=== PATIENT | female | born 1960 | race Caucasian/White ===

== ENCOUNTER 2017-06-21 16:06 | Observation (INO) | payer OTHER ==
[~2017-06-21] VITALS: Ht 157.5 cm; Wt 81.1 kg
--- NOTE | ~2017-06-21 | HEMODYNAMI ---
PATIENT:SHOLA VALENTINE MEDICAL RECORD: [id number] : 64 LOCATION:[address] ADMISSION DATE: 06/21/17 Generatedon:06/22/201712:28 Patient name: SHOLA VALENTINE Patient #: [id number] SSN: : 1960 Date of study: 06/22/2017 Page: Of Hemodynamic Procedure Report Patient Data Patient Demographics Procedure consent was obtained First Name: SHOLA Gender: Female Last Name: SERGE : 1960 Patient #: [id number] Age: 56 year(s) Race: Unknown Additional ID: [id number] Contact details Address: [address] [place] [address] State: [place] City: [place] Zip code: [address] Past Medical History Allergies Allergen Reaction Date Comments Reported Adhesive tape 06/22/2017 Other allergy 06/22/2017 theophyline Admission Admission Data Admission Date: 06/21/2017 Admission Time: 16:06 Room #: 2121 Procedure Procedure Types Cath Procedure Diagnostic Procedure [facility] w/Coronaries Miscellaneous Procedures Moderate Sedation up to 15 minutes Peripheral Cath Diagnostic Procedure Cath Peripheral Four Vessel Arteriogram Procedure Description Procedure Date Procedure Date: 06/22/2017 Procedure Start Time: 12:15 Procedure End Time: 12:28 Procedure Staff Name Function eJtt Ortiz MD Performing Physician Cherie Mera RT Monitor Shirley Reyes RT Scrub Dedra Chinchilla RN Nurse Gary Amador RT Blocker And Sewer Procedure Data Cath Procedure Fluoroscopy Diagnostic fluoroscopy Total fluoroscopy Time: 1.6 time: 1.6 min min Diagnostic fluoroscopy Total fluoroscopy dose: 158 dose: 158 mGy mGy Contrast Material Contrast Material Type Amount (ml) Isovue 300 72 Entry Location Entry Primary Successful Side Size Upsize Upsize Entry Closure Succes sful Closure Location (Fr) 1 (Fr) 2 (Fr) Remarks Device Remarks Femoral Right 5 Fr Exoseal artery Estimated blood loss: 5 ml Diagnostic catheters Device Type Used For End Catheter Placement MULTIPACK JL 4.0 5Fr catheter MULTIPACK 3DRC 5Fr Right Coronary catheter Angiography MULTIPACK 3DRC 5Fr Cervical carotid catheter (common) arteriography MULTIPACK 3DRC 5Fr Cervical carotid catheter (common) arteriography MULTIPACK Pigtail 5 Fr LV Angiography catheter Procedure Complications No complications Procedure Medications Medication Administration Route Dosage Oxygen NC 2 l/min Lidocaine 2% added to field 20 Heparin Flush Bag added to field 2 bags (1000units/500ml NS) 0.9% NaCl I.V. 100 ml/hr Versed I.V. 2 mg Fentanyl I.V. 100 mcg Versed I.V. 2 mg Fentanyl I.V. 100 mcg Hemodynamics Rest Heart Rate: 49 (bpm) Pressure Samples Time Site Value (mmHg) Purpose Heart Use Rate(bpm) 12:22 LV 94/13,16 EDP 55 12:22 AO 111/63(78) Pullback 59 12:22 LV 103/15,16 Pullback 59 Gradients Valve Time Site 1 Site 2 Mean SEP/DFP Peak To Heart Use (mmHg) (sec/min) Peak Rate (mmHg) (bpm) Aortic 12:22 LV AO 0 14 0 59 103/15,16 111/63(78) Calculations Valve P-P Mean Valve Index Valve Source Name Gradient Area Flow (cm2) Aortic 0 0 0 0 Snapshots Pre Cath Intra NCS Post Cath Vital Signs Time Heart Resp SPO2 etCO2 NIBP Rhythm Pain Sedation Rate (ipm) (%) (mmHg) (mmHg) Status Level (bpm) 12:08:16 45 17 100 32.4 99/58(78) NSR 0 (11) 10(A) , No pain 12:12:30 47 16 99 36.2 94/52(73) NSR 0 (11) 10(A) , No pain 12:16:40 50 15 98 35.4 94/59(76) NSR 0 (11) 10(A) , No pain 12:20:50 62 15 98 37.7 105/58(85) NSR 0 (11) 10(A) , No pain 12:25:04 57 16 98 48.2 97/44(66) NSR 0 (11) 10(A) , No pain Medications Time Medication Route Dose Verified Delivered Reason Notes Effe ctiveness by by 12:14:17 Oxygen NC 2 Jett Colmenares used for l/min St. Lavelle Chinchilla RN procedure 12:14:25 Lidocaine 2% added 20ml Jett Frausto for local to vial [facility] anesthetic field MD JACOME 12:14:31 Heparin Flush added 2 Jett Jett used for Bag to bags [facility] procedure (1000units/500ml field MD JACOME NS) 12:14:41 0.9% NaCl I.V. 100 Jett Colmenares Per ml/hr Chisholm Renée RN physician 12:15:49 Versed I.V. 2 mg Jett Samanthaie for ChisholmLaura Chinchilla RN sedation 12:15:55 Fentanyl I.V. 100 Jett Buffie for [facility] [place] Diana Renée RN sedation 12:21:54 Versed I.V. 2 mg Jett Samanthaie for Chisholm Renée MATUTE sedation 12:21:58 Fentanyl I.V. 100 Jett Samanthaie for [facility] Renée RN sedation Procedure Log Time Note 11:33:16 Gary Amador RT(R) (CV) sent for patient. Start room use. 11:33:17 Time tracking: Regular hours 11:33:21 Plan of Care:Hemodynamics will remain stable., Cardiac rhythm will remain stable., Comfort level will be maintained., Respiratory function will remain adequate., Patient/ family verbilizes understanding of procedure., Procedure tolerated without complication., Recovers from procedure without complications.. 11:38:28 Use device set Femoral Dx 11:38:30 ACIST Syringe (88956) opened to sterile field. 11:38:31 Bag Decanter (2001S) opened to sterile field. 11:38:32 Medline Cath Pack ([id number]) opened to sterile field. 11:38:33 Terumo 5Fr [place] Sheath opened to sterile field. 11:38:35 St Duke 260cm J .035 wire opened to sterile field. 11:38:39 ACIST Hand Control (50617) opened to sterile field. 11:38:41 ACIST Manifold (97570) opened to sterile field. 11:38:43 DIAGNOSTIC Multipack 5Fr catheter set ([id number]) opened to sterile field. 11:38:44 Tegaderm 4 x 4 (1626W) opened to sterile field. 11:38:47 PERCUTANEOUS ENTRY 19GA needle opened to sterile field. 11:52:50 Patient received from PCU to CCL 3 Alert and oriented. Tansferred to table in Supine position. 11:52:51 Warm blankets applied, and lizzy hugger turned on for patient comfort. 11:52:52 Correct patient and procedure confirmed by team. 11:56:30 Signed procedure consent form obtained from patient. 11:56:30 ECG and BP/O2 sat monitors applied to patient. 11:56:31 Full Disclosure recording started 12:07:02 Baseline sample Acquired. 12:07:04 Vital chart was started 12:07:06 Baseline sample Acquired. 12:07:12 Rhythm: sinus bradycardia 12:07:57 H&P Date Dictated: 06/21/2017 Within 30 days and on chart.. 12:07:59 Pre-procedure instructions explained to patient. 12:07:59 Pre-op teaching completed and patient verbalized understanding. 12:08:02 Family in patients room. 12:08:03 Patient NPO since Midnight. 12:08:09 Patient allergic to Adhesive tape 12:08:26 Patient allergic to Other allergytheophyline 12:08:28 Is the patient allergic to Iodine/contrast media? No. 12:08:30 Is patient on blood thinner?No 12:08:33 Patient diabetic? No. 12:08:36 Previous problem with sedation/anesthesia? No ? 12:08:37 Snore? No 12:08:38 Sleep apnea? No 12:08:38 Deviated septum? No 12:08:39 Opens mouth fully? Yes 12:08:40 Sticks out tongue? Yes 12:08:41 Airway obstruction? No ? 12:08:42 Dentures? No ? 12:08:44 Pre procedure: right dorsailis pedis pulse 2+ Normal; easily identifiable; not easily obliterated 12:08:46 Patient pain scale 0/10 ?. 12:08:50 IV patent on arrival in left hand with 0.9% NaCl at KVO. 12:08:53 Lab results completed and on chart. 12:08:55 Right groin area was prepped with chlora-prep and draped in sterile fashion 12:08:56 Alarms reviewed by R. N. 12:08:56 Sharps counted by scrub and verified by R.N. 12:09:04 Final Timeout: patient, procedure, and site verified with staff and physician. All members of the team are in agreement. 12:09:06 Right groin site verified by team. 12:: Physical assessment completed. ASA score P 2 - A patient with mild systemic disease as per Jett Ortiz MD. 12::11 Sedation plan: IV Moderate Sedation Medication:Versed, Fentanyl 12:12:50 Zero performed for pressure channel P1 12:14:17 Oxygen 2 l/min NC was administered by Dedra Chinchilla RN; used for procedure; 12:14:25 Lidocaine 2% 20ml vial added to field was administered by Jett Ortiz MD; for local anesthetic; 12:14:31 Heparin Flush Bag (1000units/500ml NS) 2 bags added to field was administered by Jett Ortiz MD; used for procedure; 12:14:41 0.9% NaCl 100 ml/hr I.V. was administered by Dedra Chinchilla RN; Per physician; 12:15:36 Procedure started. 12:15:48 Local anesthetic to right femoral artery with Lidocaine 2% by Jett Ortiz MD.INITIAL ACCESS ONLY 12:15:49 Versed 2 mg I.V. was administered by Dedra Chinchilla RN; for sedation; 12:15:55 Fentanyl 100 mcg I.V. was administered by Dedra Chinchilla RN; for sedation; 12:17:47 A 5 Fr sheath was inserted into the Right Femoral artery 12:17:54 A MULTIPACK JL 4.0 5Fr catheter was advanced over the wire and used for . 12:19:12 Catheter removed. 12:19:25 A MULTIPACK 3DRC 5Fr catheter was advanced over the wire and used for Right Coronary Angiography. 12:20:25 A MULTIPACK 3DRC 5Fr catheter was advanced over the wire and used for Cervical carotid (common) arteriography.Right 12:21:06 A MULTIPACK 3DRC 5Fr catheter was advanced over the wire and used for Cervical carotid (common) arteriography.Left 12:21:07 Catheter removed. 12:21:20 A MULTIPACK Pigtail 5 Fr catheter was advanced over the wire and used for LV Angiography. 12:21:54 Versed 2 mg I.V. was administered by Dedra Chinchilla RN; for sedation; 12:21:58 Fentanyl 100 mcg I.V. was administered by Dedra Chinchilla RN; for sedation; 12:22:29 LV gram done using GAMING 12:22:30 LV hemodynamics recorded. 12:22:33 Injector settings: Ml/sec: 10, Volume: 20, 12::41 EF : 50 % 12::54 Catheter removed. 12::57 EXOSEAL 5Fr (EX500) opened to sterile field. 12:23:27 Sheath removed intact; hemostasis achieved with Exoseal to the Right Femoral artery. 12:23:30 Procedure ended.(Physican Out) 12:23:34 Fluoroscopy time 01.60 minutes. 12::39 Fluoroscopy dose: 158 mGy 12::39 Flurop Dose total: 158 12:24:28 Contrast amount:Isovue 300 72ml. 12:24:29 Sharps counted by scrub and verified by R.N. 12:24:32 Insertion/operative site no bleeding no hematoma. 12:24:35 Post-op/insertion site Right Femoral artery dressed using a 4 x 4 and Tegaderm. 12:24:37 Post right femoral artery:stable, clean and dry 12::39 Post Procedure Pulses reassessed and unchanged 12:24:42 Post-procedure physical assessment completed. ASA score P 2 - A patient with mild systemic disease as per Jett Ortiz MD. 12:24:44 Post procedure rhythm: unchanged. 12:24:47 Estimated blood loss: 5 ml 12:24:48 Post procedure instruction explained to patient.Patient verbalizes understanding. 12:24:50 Patient needs reinforcement of post procedure teaching. 12:25:41 Procedure type changed to Cath procedure, Diagnostic procedure, LHC, LHC w/Coronaries, Miscellaneous Procedures, Moderate Sedation up to 15 minutes, Peripheral Cath Diagnostic Procedure, Cath Peripheral, Four Vessel Arteriogram 12:25:47 Procedure Complication : No complications 12:25:49 See physician's report for complete and final results. 12::57 Procedure and supply charges have been captured, reviewed, submitted and are correct. 12:27:58 Vital chart was stopped 12:28:01 Report given to PCU. 12:28:04 Patient transfered to PCU with Stretcher. 12:28:36 Procedure ended. 12:28:36 Full Disclosure recording stopped 12:28:41 End room use (Document Last) Device Usage Item Name Manufacture Quantity Catalog Hospital Part Current Minimal Lot# / Number Charge Number Stock Stock Serial# Code [place] [address]690 04542 013661 385234 825207 20 Syringe Medical (55629) Systems Inc Bag Decanter Microtek 1 2001S 107435 72032 420114 5 (2001S) Medical Inc. Medline Cath Cardinal 1 [id number] 842957 44552 368209 5 Pack Health ([id number]) Terumo 5Fr Terumo 1 EQA386 913639 293559 864547 [address] [place] [facility] 1 450237 666966 383512 092176 30 260cm J .035 wire ACIST Hand Acist 1 30344 212509 953116 389643 5 Control Medical (92284) Systems Inc ACIST Acist 1 18571 415659 780424 513514 5 Manifold Medical (97705) Systems Inc DIAGNOSTIC Cardinal 1 MZ7553 937852 55908 590645 30 Multipack Health 5Fr catheter set ([id number]) Tegaderm 4 x 3M 1 1626W 538887 832306 657356 5 4 (1626W) PERCUTANEOUS Cook Medical 1 J06053 990087 401498 5 ENTRY 19GA needle MULTIPACK JL Cardinal 1 669049 5 4.0 5Fr Health catheter MULTIPACK Cardinal 1 455989 5 3DRC 5Fr Health catheter MULTIPACK Cardinal 1 530482 5 Pigtail 5 Fr Health catheter EXOSEAL 5Fr Cardinal 1 EX500 519955 772961 148107 10 (EX500) Health Signature Audit [place] Stage Time Signature Unsigned Intra-Procedure 06/22/2017 Cherie 12:28:52 PM Counts RT(R) Signatures Monitor : Cherie Signature : Counts RT Date : Time : [facility] [address] [place] [address]
--- NOTE | 2017-06-21 07:08 | NUR ---
PT'S SON CAME OUT TO NURSE STATION, STATING THAT PT IS HAVING SEVERE CHEST PAIN THAT IS NOT GOING AWAY. TELEMETRY SHOWING SR 71, VITAL SIGNS STABLE. BP 102/63, RESP 20, HR 67, O2 96%. PT STATES THAT SHE JUST GOT OFF THE PHONE WITH FAMILY, AND MADE HER VERY UPSET. PT STATED, I THINK ITS JUST ANXIETY BUT DR. VAUGHN MADE HER COME TO THE HOSPITAL. PT DENIES ANY OTHER NEEDS AT THIS TIME. CALL LIGHT IN REACH, SON AT BEDSIDE, NAD NOTED.
--- NOTE | 2017-06-21 16:40 | NUR ---
RECEIVED PT TO ROOM 2120 VIA WHEELCHAIR, PT VERY EMOTIONAL STATES THAT HER FATHER WAS IN THE HOSPITAL AND WAS GOING HOME ON HOSPICE TODAY. FEELS REALLY BAD BECAUSE SHE CANNOT BE THERE. TRIED TO CALM PT DOWN, INFORMED HER THAT I WOULD SEE IF WE COULD GET HER SOMETHING FOR ANXIETY. PT STATED " DR. VAUGHN ALREADY GAVE ME SOMETHING IN HIS OFFICE." 22G IV STARTED TO LT FA BY NIMISHA MATUTE. EKG DONE SHOWING SB 57. ORIENTED PT TO ROOM AND CALL LIGHT, SON WILL BE STAYING THE NIGHT SO PROVIDED HIM WITH A RECLINER CHAIR. PT DNIES ANY NEEDS AT THIS TIME. CALL LIGHT IN REACH, NAD NOTED, WILL START PLAN OF CARE.
[2017-06-21 17:25] VITALS: BP 103/68; Ht 157.5 cm; Wt 81.1 kg
[2017-06-21 17:54] LABS: CREATINE KINASE 83 UL (21-215); TROPONIN-I < 0.017 ng/mL (0.000-0.060)
--- NOTE | 2017-06-21 20:44 | NUR ---
PT LYING IN BED, AWAKE, ALERT, ORIENTED, TEARFUL, BUT STABLE. NO NEEDS AT THIS TIME. 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 TODAY HER FATHER WAS TRANSFERRED HOME ON HOSPICE, AND PT STATES SHE IS FEELING GUILTY THAT SHE IS NOT THERE TO BE WITH HIM TONIGHT. PTS SON IS AT BEDSIDE. CONTINUE TO MONITOR CLOSELY.
[2017-06-21 21:12] VITALS: BP 108/57
[2017-06-21 22:54] LABS: CKMB 0.8 U/L (0.0-3.6); CREATINE KINASE 81 UL (21-215); TROPONIN-I < 0.017 ng/mL (0.000-0.060)
[2017-06-22 01:05] VITALS: BP 79/35
--- NOTE | 2017-06-22 01:33 | NUR ---
PT RESTING COMFORTABLY, EASILY ROUSABLE TO VERBAL STIMULI. SON AT BEDSIDE. CONTINUE TO MONITOR CLOSELY.
[2017-06-22] MEDS ORDERED: XANAX1 MG PO (03:55)
[2017-06-22] MEDS ORDERED: PROZAC10 MG PO (03:56)
[2017-06-22] MEDS ORDERED: BACLOFEN10 MG PO (03:56)
[2017-06-22] MEDS ORDERED: KLONOPIN1 MG PO (03:57)
[2017-06-22] MEDS ORDERED: LIPITOR20 MG PO (03:58)
[2017-06-22] MEDS ORDERED: HYDROCODON-ACE1 EAC7 PO (03:58)
--- NOTE | 2017-06-22 04:55 | NUR ---
PT'S B/P HAS BEEN LOW, LAST READING @ 04:30 THIS AM IS 76/37 PER OUTREACH AND EDUCATION SOCIAL WORKER. I RECHECKED PTS B/P WITH THE WALL UNIT IN PTS ROOM WITH A READING OF 100/59. PT REMAINS STABLE, STILL HAS TWINGES OF CHEST PAIN, HOWEVER, I CANNOT GIVE HER ANYTHING SEDATING WITH HER PRESSURE BEING LOW. PT STATES SHE DOES GET DIZZY WHEN AMBULATING TO THE BATHROOM. WE DISCUSSED THE NEED TO DANGLE ON THE BEDSIDE BEFORE AMBULATING, IN WHICH PT STATES SHE HAS BEEN DOING THAT. PT IS TO CALL WITH ANY NEEDS OR CHANGES IN S/S. WILL CONTINUE TO MONITOR CLOSELY.
[2017-06-22 05:22] VITALS: BP 76/37
[2017-06-22 05:33] LABS: BASOPHILS 0.3 % (0-2); EOSINOPHILS 4.3 % (0-7); HEMATOCRIT 36.8 % (36.0-48.0); HEMOGLOBIN 12.4 g/dL (12-16); IMMATURE GRANULOCYTES 0.2 % (0-5); MCH 31.1 pg (26.0-34.0); MCHC 33.7 g/dL (31.0-37.0); MCV 92.2 fL (80.0-100.0); MEAN PLATELET VOLUME 11.3 fL (7.4-10.4); MONOCYTES 8.6 % (2-11); NEUTROPHILS 38.6 % (40-80); PLATELET COUNT 131 10x3/uL (130-400); RBC 3.99 10x6/uL (4.00-5.40); RDW 11.9 % (11.5-14.5); WBC 6.3 10x3/uL (4.8-10.8)
[2017-06-22 05:35] LABS: ALBUMIN 3.1 g/dL (3.4-5.0); ALKALINE PHOSPHATASE 39 U/L (46-116); ALT (SGPT) 18 U/L (10-68); CALC OSMOLALITY 284 mosm/kg (275-300); CARBON DIOXIDE 28.5 mmol/L (21.0-32.0); CHLORIDE - SERUM 107 mmol/L (98-107); CREATINE KINASE 70 UL (21-215); CREATININE - SERUM 0.9 mg/dL (0.6-1.3); GLUCOSE 107 mg/dL (74-106); POTASSIUM - SERUM 3.8 mmol/L (3.5-5.1); PRO BNP 103 pg/mL (0-125); PROTEIN - SERUM 5.4 g/dL (6.4-8.2); SODIUM 143 mmol/L (136-145); TROPONIN-I < 0.017 ng/mL (0.000-0.060); UREA NITROGEN 12 mg/dL (7-18); eGFR NON AFRICAN AMERICAN 69 mL/min (90-120)
[2017-06-22 05:41] VITALS: BP 100/59
[2017-06-22 08:33] VITALS: BP 107/53
--- NOTE | 2017-06-22 09:26 | NUR ---
TELEMETRY SR. CONSENTS SIGNED FOR [facility]. WILL CONT. PLAN OF CARE.
--- NOTE | 2017-06-22 12:02 | NUR ---
PRE-OPS GIVEN. TO LAB SPECIALIST BY BED.
--- NOTE | 2017-06-22 12:03 | NUR ---
PRE-OPS GIVEN. TO ENVIRONMENTAL AIDE BY BED.
--- NOTE | 2017-06-22 12:48 | NUR ---
BACK FROM GOAL UMPIRE. VS WNL. RIGHT GROIN STABLE WITHOUT BLEEDING OR HEMATOMA NOTED. WILL MONITOR.
--- NOTE | 2017-06-22 13:52 | NUR ---
PTS BP TRENDING LOW SO I WENT TO DO A MANUAL AND PT YELLED AT ME TO LEAVE HER ROOM AND SAID "GET OUT IM LEAVING I DONT WANT SHIT FROM YOU" PT IS STILL SUPPOSE TO BE ON BEDREST AND IS IN A VERY BAD MOOD AND REFUSING TO LISTEN. PT IS COLLECTING HER BELONGINGS, NOTIFIED PRIMARY RN FOR THIS PT.
--- NOTE | 2017-06-22 14:03 | NUR ---
ENTERED ROOM TO ASK IF SHE WOULD LIKE A FLU OR PNEUMONIA VACCINE. PATIENT STATED SHE WAS BUSY TAKING CARE OF BUSINESS AND THAT I COULD COME BACK IN 5 MINUTES. I EXPLAINED I MIGHT NOT BE ABLE TO COME BACK IN 5 MINUTES AND SHE STATES " WELL THAT'S YOUR PROBLEM ISN'T IT". I EXITED THE ROOM.
--- NOTE | 2017-06-22 14:04 | NUR ---
[facility] NOTIFED OF PATIENT WANTING TO STAY OVERNIGHT. PT STATES THAT BOTH DOCTORS TOLD HER SHE COULD STAY. REFUSED MANUAL B/P. PULLS OUT IV AND TELEMETRY. WHEN TOLD SHE WOULD HAVE TO SIGN OUT AMA IF SHE LEFT BEFORE HER BR IS UP. SHE DECIDED TO LAY BACK DOWN UNTILL THEN. WILL CONT. TO MONITOR.
--- NOTE | 2017-06-22 14:13 | NUR ---
RETURNED TO PATIENTS ROOM TO ASK IF SHE WOULD LIKE A FLU OR PNEUMONIA VACCINE. STATED "NO, THEY DON'T WORK ANYWAY".
--- NOTE | 2017-06-22 14:16 | NUR ---
REFUSES TO LET ME MONITOR GROIN.
--- NOTE | 2017-06-22 14:43 | NUR ---
BEDREST UP. GROIN STABLE. 1400 B/P /56. DC PLANS GIVEN. UNDERSTANDING VOICED. ESCORTED TO CAR BY W/C.
--- NOTE | 2017-06-25 13:58 | OP ---
PATIENT NAME: SHOLA VALENTINE MEDICAL RECORD: [id number] :64 LOCATION:D.M2 D.2121 ADMISSION DATE:06/21/17 SURGEON: NELL ZAMORA MD DATE OF OPERATION: 06/22/2017 PROCEDURE: Left heart catheterization, selective coronary angiography, right femoral artery approach. CATHETERS USED: 5-Palestinian sheath, 5/4 right and left Bebeto, 5/4 pig. The procedure was well tolerated. The patient was returned to the iqbal, sheath removed and ExoSeal device placed. FINDINGS: Left ventriculography in 30-degree GAMING view: Normal wall motion, normal systolic function, no more than 1+ mitral regurgitation. Do not appreciate any prolapse of the mitral valve itself. CORONARY ANATOMY LEFT MAIN: Left main is free of disease. LAD: Free of disease in the diagonal system. CIRCUMFLEX: Free of disease in the marginal system. RIGHT CORONARY ARTERY: Dominant artery, gives rise to PDA, free of disease. FOUR-VESSEL ARTERIOGRAPHY: LEFT SYSTEM: Left common carotid: Smooth-walled vessel, free of disease. Left internal carotid: Smooth-walled vessel, free of disease. Left external carotid: Smooth-walled vessel, free of disease. RIGHT SYSTEM: Right common carotid: Smooth-walled vessel, free of disease. Right external carotid: Smooth-walled vessel, free of disease. Right internal carotid: Smooth-walled vessel, free of disease. IMPRESSION: Normal 4-vessel arteriography. I really do not appreciate plaquing reported by carotid Doppler previously. TRANSINT:[id number] Voice Confirmation ID: [id number] DOCUMENT ID: [id number] NELL ZAMORA MD at 1358 CC: [id number] DICTATION DATE: 06/22/17 1229 MILL FEEDER: 06/22/17 1245 DIS IN 06/22/17 [place] [id number] [place] [id number]
--- NOTE | 2017-06-25 13:58 | CN ---
PATIENT NAME:SHOLA VALENTINE MEDICAL RECORD: [id number] : 64 LOCATION:. D.2121 ADMIT DATE: 06/21/17 ACCOUNT: [id number] CONSULTING PHYSICIAN: NELL ZAMORA MD REFERRING PHYSICIAN: LAKEISHA VAUGHN MD DATE OF CONSULTATION: 06/22/2017 HISTORY OF PRESENT ILLNESS: A 56-year-old female with a history of mitral valve prolapse, admitted with chest pain, increasing palpitations, dizziness, visual changes, near syncope. This has been going on for the past few weeks, has been under quite a bit of stress with her father being placed on hospice. She has had arrhythmias in the past. It was told she had early atherosclerotic disease via Doppler in the past. She does have a history of dyslipidemia as well. We are asked to see her concerning her cardiovascular status. PAST MEDICAL HISTORY: Otherwise includes: 1. History of dyslipidemia. 2. Anxiety with panic attacks. MEDICATIONS: Include clonazepam 1 mg p.o. t.i.d., Prozac 10 mg p.o. daily, Xanax 1 mg p.o. q.6 hours p.r.n., atorvastatin 20 daily, Baclofen 10 t.i.d. SOCIAL HISTORY: She lives in [place]. She is a nonsmoker. Previously worked at the [employer]. She has been under more stress as described above. Usually takes care of her ADLs. REVIEW OF SYSTEMS: The patient reports easy bruising but reports no swollen glands. The patient reports no fever, no night sweats, no significant weight gain, no significant weight loss. No significant exercise tolerance. The patient reports no dry eyes, no irritation, no vision change. Patient reports no difficulty hearing and no ear pain. Patient reports no frequent nose bleeds or nose and sinus problems. Patient reports on arm pain on exertion. No shortness of breath while lying down. No history of heart murmur. Patient reports no cough, no wheezing or coughing up blood. Patient reports no abdominal pain, no vomiting. Normal appetite. No diarrhea and not vomiting blood. No nausea and no constipation. Patient reports no incontinence. No difficulty urinating. No hematuria. No increased frequency. Patient reports no muscle aches. No weakness, no arthralgias, no back pain. No swelling of the extremities. Patient reports no abnormal mole, no jaundice, no rashes. Reports no loss of consciousness. No weakness and no numbness. No seizures, dizziness, or headaches. The patient reports no depression, no sleep disturbance, feeling safe in a relationship and no alcohol abuse. Patient reports on fatigue. Reports no runny nose or sinus pressure. No itching, no hives, and no frequent sneezing. ALLERGIES: THEOPHYLLINE. PHYSICAL EXAMINATION: GENERAL: Pleasant female in no acute distress. HEENT: Normocephalic, atraumatic. NECK: No JVD or bruit. HEART: Regular. LUNGS: Reyes clear. ABDOMEN: Soft, nontender. EXTREMITIES: Pulses 2+ with no edema. CONSULT REPORT [id number] SHOLA VALENTINE DIAGNOSTIC DATA: ECG without acute change. IMPRESSION: Acute coronary syndrome. I will plan for diagnostic angiography. Given her neurologic symptomatology and history of early atherosclerotic disease via carotid Doppler we will plan for 4-vessel in the same setting. TRANSINT:[id number] Voice Confirmation ID: [id number] DOCUMENT ID: [id number] NELL ZAMORA MD at 1358 CC: [id number] DICTATION DATE: 06/22/17 0850 MARKETING DEVELOPMENT REPRESENTATIVE: 06/22/17 1148 DIS IN 06/22/17 [place] [id number] [place] [address]
== END 2017-06-22 14:45 | disposition home or self-care (01) ==
LOC: D.M2 16:06 → OBSVTIME 16:38 → D.M2 06-22 14:45
PROVIDERS: Family Medicine; ADMIT Family Medicine
DX: R07.9 Chest pain, unspecified (principal); R42 Dizziness and giddiness; H53.9 Unspecified visual disturbance; F41.0 Panic disorder [episodic paroxysmal anxiety]; E78.5 Hyperlipidemia, unspecified

== ENCOUNTER 2017-10-08 12:48 | Inpatient (IN) | payer OTHER ==
[~2017-10-08] VITALS: Ht 157.5 cm; Wt 83.0 kg
--- NOTE | ~2017-10-08 | OP ---
PATIENT NAME: SHOLA VALENTINE MEDICAL RECORD: [id number] :64 LOCATION:D.MS [id number] ADMISSION DATE:10/08/17 SURGEON: OTTO LORD MD DATE OF OPERATION: 10/10/2017 SURGEON: Otto Lord MD ANESTHESIA: MAC by Carlos Mcgraw CRNA PREOPERATIVE DIAGNOSIS: Left pyelonephritis with left hydronephrosis. PROCEDURES: Cystoscopy, left retrograde pyelogram, left ureteral stent insertion 6-Wolof x 22 cm with string attached. FINDINGS: Inflamed bladder. Single ureteral orifices bilaterally. On retrograde pyelogram, there is hydronephrosis to the proximal ureter. No obvious filling defect. No hydroureter. No stone seen. CLINICAL HISTORY: This is a 56-year-old female, who has a 5 day history of left flank pain, fevers, chills, rigors, and dysuria with cloudy urine. Her urine is growing Proteus mirabilis, which is sensitive to all antibiotics except for nitrofurantoin to which she is resistant. She was started empirically on IV Levaquin. She does have a history of kidney stones. A CT scan of the abdomen and pelvis showed no kidney stones. However, there was left hydronephrosis to the UP junction level. It was uncertain whether this was due to tissue edema or some other cause. At any rate, she continues to have high spiking fevers to 102 Fahrenheit. We are going to perform a left retrograde pyelogram and left ureteral stent insertion. SHE IS ALLERGIC TO TAPE, THEOPHYLLINE, AND KEFLEX. She is already on IV Levaquin and we gave her the next dose of Levaquin prior to her coming here to the OR. DESCRIPTION OF PROCEDURE: The patient was given IV sedation. She was then placed in the dorsal lithotomy position. Cystoscopy was performed using a 21-Wolof cystoscope with 30-degree lens. Into the left ureteral orifice, we inserted the left open-ended ureteral catheter. Diluted contrast was injected. There is no hydroureter. However, there is some area of possible obstruction in the proximal ureter. No obvious filling defect was seen there. Finally, there was hydronephrosis of the renal pelvis in the UP junction area. The appearance is not consistent with a UPJ obstruction. Through the lumen of the ureteral catheter, we inserted a sensor wire up to his renal pelvis. The ureteral catheter was then removed entirely. The 6-Wolof x 22 cm ureteral stent was inserted. Once the stent was in correct position, the wire was entirely withdrawn. The distal end of the stent was pushed into the bladder using the pusher. The bladder was then emptied through the scope and then the scope was removed entirely. The string on the distal end of the stent is maintained. It was taped to the suprapubic area using a piece of Tegaderm. The patient was then awakened and brought to the recovery room. TRANSINT:[id number] Voice Confirmation ID: [id number] DOCUMENT ID: [id number] OPERATIVE REPORT [id number] SHOLA VALENTINE, OTTO Sow MD at 1226 CC: [id number] DICTATION DATE: 10/10/17 1058 SPLITTING MACHINE TENDER: 10/10/17 1118 ADM IN [facility] [address] [place] [address]
[~2017-10-08 12:48] MED LIST: BACLOFEN10 MG PO; HYDROCODON-ACE1 EAC7 PO; KLONOPIN1 MG PO; LIPITOR20 MG PO; PROZAC10 MG PO; XANAX1 MG PO
[2017-10-08 13:34] VITALS: BP 119/72; BMI 33.5
[2017-10-08] MEDS ORDERED: CYCLOBENZAPRINE10 MG PO (13:34)
[2017-10-08 14:24] LABS: BASOPHILS 0.1 % (0-2); EOSINOPHILS 0.4 % (0-7); HEMATOCRIT 41.3 % (36.0-48.0); HEMOGLOBIN 14.5 g/dL (12-16); IMMATURE GRANULOCYTES 0.2 % (0-5); LYMPHOCYTES 12.9 % (15-50); MCH 31.4 pg (26.0-34.0); MCHC 35.1 g/dL (31.0-37.0); MCV 89.4 fL (80.0-100.0); MEAN PLATELET VOLUME 11.2 fL (7.4-10.4); NEUTROPHILS 79.4 % (40-80); PLATELET COUNT 143 10x3/uL (130-400); RBC 4.62 10x6/uL (4.00-5.40); RDW 11.9 % (11.5-14.5); WBC 12.5 10x3/uL (4.8-10.8)
[2017-10-08 14:26] LABS: ALBUMIN 3.6 g/dL (3.4-5.0); ANION GAP 13.8 mmol/L (8-16); BILIRUBIN - TOTAL 0.86 mg/dL (0.2-1.3); CALCIUM 8.7 mg/dL (8.5-10.1); CREATININE - SERUM 0.9 mg/dL (0.6-1.3); POTASSIUM - SERUM 4.8 mmol/L (3.5-5.1); PROTEIN - SERUM 7.1 g/dL (6.4-8.2)
[2017-10-08 15:04] VITALS: BP 119/72
[2017-10-08 18:51] LABS: APPEARANCE HAZY (CLEAR); BILIRUBIN NEGATIVE (NEGATIVE); COLOR AMBER (YELLOW); GLUCOSE NEGATIVE (NEGATIVE); KETONE NEGATIVE (NEGATIVE); NITRITE NEGATIVE (NEGATIVE); PROTEIN 1+ mg/dL (NEGATIVE); UROBILINOGEN NORMAL (NORMAL)
[2017-10-08 18:53] LABS: AMORPHOUS SEDIMENT <1+ /lpf (NONE SEEN); BACTERIA MANY /hpf (NONE SEEN)
[2017-10-08 18:59] VITALS: BP 104/56
[2017-10-08 23:59] VITALS: BP 94/51
[2017-10-09 04:17] VITALS: BP 95/55
[2017-10-09 06:56] LABS: BASOPHILS 0 % (0-2); HEMATOCRIT 35.3 % (36.0-48.0); HEMOGLOBIN 11.9 g/dL (12-16); IMMATURE GRANULOCYTES 0.3 % (0-5); LYMPHOCYTES 26.6 % (15-50); MCH 30.6 pg (26.0-34.0); MCHC 33.7 g/dL (31.0-37.0); MCV 90.7 fL (80.0-100.0); MEAN PLATELET VOLUME 10.5 fL (7.4-10.4); MONOCYTES 8.9 % (2-11); NEUTROPHILS 62.2 % (40-80); RBC 3.89 10x6/uL (4.00-5.40)
[2017-10-09 07:05] LABS: PLATELET COUNT 110 10x3/uL (130-400); WBC 7.7 10x3/uL (4.8-10.8)
[2017-10-09 07:07] LABS: ALBUMIN 2.9 g/dL (3.4-5.0); BILIRUBIN - TOTAL 0.98 mg/dL (0.2-1.3); CALCIUM 8.3 mg/dL (8.5-10.1); CARBON DIOXIDE 28.1 mmol/L (21.0-32.0); CREATININE - SERUM 0.9 mg/dL (0.6-1.3); PROTEIN - SERUM 5.8 g/dL (6.4-8.2)
[2017-10-09 07:08] LABS: ANION GAP 9.9 mmol/L (8-16)
[2017-10-09 08:40] VITALS: BP 95/53
[2017-10-09 13:03] VITALS: BP 99/54
[2017-10-09 15:22] VITALS: BMI 33.5
[2017-10-09 16:59] VITALS: BP 106/57
[2017-10-09 19:26] VITALS: Ht 157.5 cm; Wt 83.0 kg
[2017-10-09 20:22] VITALS: BP 97/59
[2017-10-10] VITALS (10 sets, daily range): BP systolic 88–106; BP diastolic 39–62
[2017-10-10 06:33] LABS: BASOPHILS 0.2 % (0-2); EOSINOPHILS 1.6 % (0-7); HEMATOCRIT 35.8 % (36.0-48.0); HEMOGLOBIN 12.1 g/dL (12-16); IMMATURE GRANULOCYTES 0.2 % (0-5); LYMPHOCYTES 32.5 % (15-50); MCH 30.5 pg (26.0-34.0); MCHC 33.8 g/dL (31.0-37.0); MCV 90.2 fL (80.0-100.0); MEAN PLATELET VOLUME 10.2 fL (7.4-10.4); MONOCYTES 8.6 % (2-11); NEUTROPHILS 56.9 % (40-80); PLATELET COUNT 119 10x3/uL (130-400); RBC 3.97 10x6/uL (4.00-5.40); RDW 11.6 % (11.5-14.5); WBC 6.3 10x3/uL (4.8-10.8)
[2017-10-10 07:27] LABS: ALBUMIN 2.9 g/dL (3.4-5.0); ALKALINE PHOSPHATASE 38 U/L (46-116); ALT (SGPT) 14 U/L (10-68); BILIRUBIN - TOTAL 0.71 mg/dL (0.2-1.3); CALC OSMOLALITY 274 mosm/kg (275-300); CALCIUM 8.6 mg/dL (8.5-10.1); CARBON DIOXIDE 27.5 mmol/L (21.0-32.0); CHLORIDE - SERUM 103 mmol/L (98-107); CREATININE - SERUM 0.8 mg/dL (0.6-1.3); GLUCOSE 99 mg/dL (74-106); SODIUM 138 mmol/L (136-145); eGFR NON AFRICAN AMERICAN 79 mL/min (90-120)
[2017-10-10 07:34] LABS: UREA NITROGEN 9 mg/dL (7-18)
[2017-10-11 04:09] VITALS: BP 81/67
[2017-10-11 06:38] LABS: BASOPHILS 0 % (0-2); EOSINOPHILS 3.6 % (0-7); HEMATOCRIT 33.1 % (36.0-48.0); HEMOGLOBIN 11.1 g/dL (12-16); IMMATURE GRANULOCYTES 0.2 % (0-5); LYMPHOCYTES 42.4 % (15-50); MCH 30.2 pg (26.0-34.0); MCHC 33.5 g/dL (31.0-37.0); MCV 89.9 fL (80.0-100.0); MEAN PLATELET VOLUME 10.6 fL (7.4-10.4); MONOCYTES 9.2 % (2-11); NEUTROPHILS 44.6 % (40-80); PLATELET COUNT 127 10x3/uL (130-400); RBC 3.68 10x6/uL (4.00-5.40); RDW 11.5 % (11.5-14.5); WBC 4.7 10x3/uL (4.8-10.8)
[2017-10-11 07:01] LABS: ALBUMIN 2.6 g/dL (3.4-5.0); ALKALINE PHOSPHATASE 33 U/L (46-116); ALT (SGPT) 16 U/L (10-68); CALC OSMOLALITY 272 mosm/kg (275-300); CALCIUM 8.2 mg/dL (8.5-10.1); CHLORIDE - SERUM 103 mmol/L (98-107); CREATININE - SERUM 0.7 mg/dL (0.6-1.3); GLUCOSE 105 mg/dL (74-106); PROTEIN - SERUM 5.4 g/dL (6.4-8.2); SODIUM 137 mmol/L (136-145); UREA NITROGEN 10 mg/dL (7-18); eGFR NON AFRICAN AMERICAN > 90 mL/min (90-120)
[2017-10-11 08:31] VITALS: BP 92/45
[2017-10-11 13:03] VITALS: BP 127/62
[2017-10-11 16:28] VITALS: BP 86/41
[2017-10-11 20:55] VITALS: BP 101/61
[2017-10-11 23:17] VITALS: BP 108/64
[2017-10-12 04:24] VITALS: BP 110/62
[2017-10-12 06:25] LABS: BASOPHILS 0.2 % (0-2); EOSINOPHILS 6.3 % (0-7); HEMATOCRIT 35.6 % (36.0-48.0); HEMOGLOBIN 12.3 g/dL (12-16); IMMATURE GRANULOCYTES 0.2 % (0-5); LYMPHOCYTES 44.7 % (15-50); MCH 30.8 pg (26.0-34.0); MCHC 34.6 g/dL (31.0-37.0); MONOCYTES 7.6 % (2-11); PLATELET COUNT 137 10x3/uL (130-400); RDW 11.6 % (11.5-14.5); WBC 4.6 10x3/uL (4.8-10.8)
[2017-10-12 06:32] LABS: ALBUMIN 2.9 g/dL (3.4-5.0); ALKALINE PHOSPHATASE 37 U/L (46-116); ALT (SGPT) 14 U/L (10-68); CALC OSMOLALITY 270 mosm/kg (275-300); CALCIUM 8.4 mg/dL (8.5-10.1); CARBON DIOXIDE 26.2 mmol/L (21.0-32.0); CHLORIDE - SERUM 103 mmol/L (98-107); CREATININE - SERUM 0.7 mg/dL (0.6-1.3); GLUCOSE 104 mg/dL (74-106); PROTEIN - SERUM 5.5 g/dL (6.4-8.2); SODIUM 136 mmol/L (136-145); UREA NITROGEN 10 mg/dL (7-18); eGFR NON AFRICAN AMERICAN > 90 mL/min (90-120)
[2017-10-12 08:10] VITALS: BP 113/62
[2017-10-12] MEDS ORDERED: LEVAQUIN750 MG PO (11:10)
[2017-10-12] MEDS ORDERED: PHENERGAN25 M1 PO (11:11)
== END 2017-10-12 15:04 | disposition home or self-care (01) | DRG 690 ==
LOC: D.MS 12:48 → OBSVTIME 12:48 → D.MS 10-10 14:44
PROVIDERS: Family Medicine; Family Medicine Adult Medicine; Urology
PROC: BT1F1ZZ Fluoroscopy of Left Kidney, Ureter and Bladder using Low Osmolar Contrast (ICD-10-PCS; 2017-10-10)
PROC: 0T778DZ Dilation of Left Ureter with Intraluminal Device, Via Natural or Artificial Opening Endoscopic (ICD-10-PCS; principal; 2017-10-10 11:45)
DX: N13.6 Pyonephrosis (principal); B96.4 Proteus (mirabilis) (morganii) as the cause of diseases classified elsewhere; Z87.442 Personal history of urinary calculi; F17.200 Nicotine dependence, unspecified, uncomplicated; F41.9 Anxiety disorder, unspecified; E86.0 Dehydration; I95.9 Hypotension, unspecified; K21.9 Gastro-esophageal reflux disease without esophagitis

== ENCOUNTER 2018-11-25 17:11 | Inpatient (IN) | payer OTHER ==
[~2018-11-25] VITALS: Ht 157.5 cm; Wt 77.3 kg
[~2018-11-25 17:11] MED LIST changes: +CYCLOBENZAPRINE10 MG PO; +LEVAQUIN750 MG PO; +PHENERGAN25 M1 PO
[2018-11-25] MEDS ORDERED: HYDROCODON-ACE1 EA10 PO (17:17)
[2018-11-25] MEDS ORDERED: AMOXICILLIN875 MG PO (17:18)
[2018-11-25] MEDS ORDERED: XANAX2 MG PO (17:18)
--- NOTE | 2018-11-25 19:04 | NUR ---
BEDSIDE REPORT GIVEN TO JUJU LOUIE. CALL LIGHT IN REACH AND NICK NAM.
[2018-11-25 19:47] LABS: BASOPHILS 0.2 % (0-2); EOSINOPHILS 4.2 % (0-7); HEMATOCRIT 33.2 % (36.0-48.0); HEMOGLOBIN 11.3 g/dL (12-16); IMMATURE GRANULOCYTES 0.2 % (0-5); MCH 30.4 pg (26.0-34.0); MCV 89.2 fL (80.0-100.0); MONOCYTES 10.1 % (2-11); NEUTROPHILS 53.3 % (40-80); PLATELET COUNT 138 10x3/uL (130-400); RBC 3.72 10x6/uL (4.00-5.40); RDW 11.8 % (11.5-14.5); WBC 5.5 10x3/uL (4.8-10.8)
[2018-11-25 19:55] LABS: ALBUMIN 3.2 g/dL (3.4-5.0); ALKALINE PHOSPHATASE 39 U/L (46-116); ALT (SGPT) 20 U/L (10-68); BILIRUBIN - TOTAL 0.26 mg/dL (0.2-1.3); CALC OSMOLALITY 275 mosm/kg (275-300); CALCIUM 8.4 mg/dL (8.5-10.1); CARBON DIOXIDE 29.2 mmol/L (21.0-32.0); CHLORIDE - SERUM 101 mmol/L (98-107); CREATININE - SERUM 0.7 mg/dL (0.6-1.3); GLUCOSE 88 mg/dL (74-106); POTASSIUM - SERUM 3.7 mmol/L (3.5-5.1); PROTEIN - SERUM 5.9 g/dL (6.4-8.2); SODIUM 139 mmol/L (136-145); UREA NITROGEN 9 mg/dL (7-18); eGFR NON AFRICAN AMERICAN > 90 mL/min (90-120)
[2018-11-26 00:47] VITALS: BMI 31.1
--- NOTE | 2018-11-26 04:25 | NUR ---
I have reviewed this patient and I concur with the Shift Assessment completed by the Licensed Practical Nurse today this shift.
--- NOTE | 2018-11-26 08:36 | NUR ---
PT ALERT X 4. BREATH SOUNDS CLEAR BILAT. IV TO LEFT HAND, SALINE LOCKED. ABSCESS TO RIGHT SCAPULAR AREA, ALMENDAREZ DRAINAGE, DRESSING CDI. PAIN OF 7/10, MEDICATED PER ORDERS, WILL MONITOR. BED LOW, CALL LIGHT IN REACH. NO OTHER NEEDS AT THIS TIME. PT EMOTIONAL.
[2018-11-26 08:45] LABS: BASOPHILS 0.2 % (0-2); EOSINOPHILS 5.1 % (0-7); HEMATOCRIT 35.9 % (36.0-48.0); HEMOGLOBIN 12.3 g/dL (12-16); IMMATURE GRANULOCYTES 0.2 % (0-5); LYMPHOCYTES 36.5 % (15-50); MCH 30.4 pg (26.0-34.0); MCHC 34.3 g/dL (31.0-37.0); MCV 88.9 fL (80.0-100.0); MEAN PLATELET VOLUME 10.7 fL (7.4-10.4); MONOCYTES 6.7 % (2-11); NEUTROPHILS 51.3 % (40-80); RBC 4.04 10x6/uL (4.00-5.40); RDW 11.9 % (11.5-14.5); WBC 5.1 10x3/uL (4.8-10.8)
[2018-11-26 08:51] LABS: PLATELET COUNT 172 10x3/uL (130-400)
[2018-11-26 09:04] LABS: CALC OSMOLALITY 275 mosm/kg (275-300); CALCIUM 8.6 mg/dL (8.5-10.1); CARBON DIOXIDE 29.6 mmol/L (21.0-32.0); CHLORIDE - SERUM 102 mmol/L (98-107); CREATININE - SERUM 0.8 mg/dL (0.6-1.3); GLUCOSE 103 mg/dL (74-106); POTASSIUM - SERUM 3.9 mmol/L (3.5-5.1); SODIUM 139 mmol/L (136-145); UREA NITROGEN 7 mg/dL (7-18); eGFR NON AFRICAN AMERICAN 78 mL/min (90-120)
[2018-11-26 10:05] VITALS: Ht 157.5 cm; Wt 77.3 kg
[2018-11-26 15:39] VITALS: BP 96/54
[2018-11-26 18:52] VITALS: BP 96/63
[2018-11-26 21:37] VITALS: BP 95/52
[2018-11-27] VITALS (7 sets, daily range): BP systolic 95–110; BP diastolic 52–69
--- NOTE | 2018-11-27 04:34 | NUR ---
I have reviewed this patient and I concur with the Shift Assessment completed by the Licensed Practical Nurse today this shift.
[2018-11-27 06:36] LABS: BASOPHILS 0.2 % (0-2); EOSINOPHILS 5.2 % (0-7); HEMATOCRIT 33.6 % (36.0-48.0); HEMOGLOBIN 11.3 g/dL (12-16); IMMATURE GRANULOCYTES 0.5 % (0-5); LYMPHOCYTES 34.6 % (15-50); MCH 30.4 pg (26.0-34.0); MCHC 33.6 g/dL (31.0-37.0); MCV 90.3 fL (80.0-100.0); MEAN PLATELET VOLUME 10.6 fL (7.4-10.4); MONOCYTES 7.5 % (2-11); PLATELET COUNT 163 10x3/uL (130-400); RBC 3.72 10x6/uL (4.00-5.40); RDW 11.9 % (11.5-14.5)
[2018-11-27 06:47] LABS: CALC OSMOLALITY 279 mosm/kg (275-300); CALCIUM 8.1 mg/dL (8.5-10.1); CARBON DIOXIDE 27.1 mmol/L (21.0-32.0); CHLORIDE - SERUM 105 mmol/L (98-107); CREATININE - SERUM 0.8 mg/dL (0.6-1.3); GLUCOSE 106 mg/dL (74-106); POTASSIUM - SERUM 3.6 mmol/L (3.5-5.1); SODIUM 141 mmol/L (136-145); eGFR NON AFRICAN AMERICAN 78 mL/min (90-120)
[2018-11-27 06:48] LABS: UREA NITROGEN 9 mg/dL (7-18)
--- NOTE | 2018-11-27 10:00 | NUR ---
PT VERY CONCERNED WITH DRESSING BEING SATURATEDF THIS MORNING. ADVISED PT THAT DRESSING IS NOT SOAKED THROUGH AND DRAINING IS EXPECTED, PT REQUESTED THAT DRESSING SITE BE CHANGED, PERFORMED WET TO DRY DRESSING CHANGE PACKING DEBRIDEMENT SITE. ADMINISTERED PRN AND SCHEDULED MEDICATION BEFORE HAND TO ASSIST WITH PAIN. NO OTHER NEEDS VOICED, CONTINUE WITH PLAN OF CARE
--- NOTE | 2018-11-27 14:41 | NUR ---
I have reviewed this patient and I concur with the Shift Assessment completed by the Licensed Practical Nurse today this shift.
--- NOTE | 2018-11-27 16:50 | NUR ---
PT HAS ORDER FOR MIRALAX, ASKED PT IF SHE NEEDED MIRALAX PT STATED NO SHE HAS HAD A BM TODAY AND ORDERED A SIDE SALAD FOR DINNER, THIS USUALLY HELPS HER TO GO. NO OTHER NEEDS VOICED, CONTINUE WITH PLAN OF CARE
--- NOTE | 2018-11-28 04:10 | NUR ---
REC'D AT SHIFT CHGE. COMING OUT OF BATHROOM.STATES DRSG JUST CHGED.QUARTER SIZE DRY PINK TINGED DRAINAGE NOTED UNDERNEATH TAPE.CONTINUES TO RATE PAIN 10 ON 1-10 PAIN SCALE.WILL CONTINUE TO MONITOR FOR ANY CHGES AND FOLLOW CURRENT PLAN OF CARE.
[2018-11-28 05:02] VITALS: BP 95/52
[2018-11-28 05:32] LABS: BASOPHILS 0.2 % (0-2); EOSINOPHILS 4.7 % (0-7); HEMATOCRIT 33.9 % (36.0-48.0); HEMOGLOBIN 11.5 g/dL (12-16); IMMATURE GRANULOCYTES 0.5 % (0-5); MCH 30.7 pg (26.0-34.0); MCHC 33.9 g/dL (31.0-37.0); MCV 90.6 fL (80.0-100.0); MEAN PLATELET VOLUME 10.2 fL (7.4-10.4); NEUTROPHILS 48.6 % (40-80); PLATELET COUNT 171 10x3/uL (130-400); RBC 3.74 10x6/uL (4.00-5.40); RDW 12.1 % (11.5-14.5); WBC 4.3 10x3/uL (4.8-10.8)
[2018-11-28 05:44] LABS: CALC OSMOLALITY 281 mosm/kg (275-300); CALCIUM 8.3 mg/dL (8.5-10.1); CHLORIDE - SERUM 107 mmol/L (98-107); CREATININE - SERUM 0.7 mg/dL (0.6-1.3); GLUCOSE 94 mg/dL (74-106); POTASSIUM - SERUM 3.9 mmol/L (3.5-5.1); SODIUM 143 mmol/L (136-145); eGFR NON AFRICAN AMERICAN > 90 mL/min (90-120)
[2018-11-28 05:55] LABS: UREA NITROGEN 5 mg/dL (7-18)
--- NOTE | 2018-11-28 07:05 | NUR ---
PATIENT RECIEVED FROM PREVIOUS SHIFT RESTING IN BED. POST I&D RIGHT UPPER SHOULDER. DRESSING C/D/I AT THIS TIME. NO NEEDS VOICED AT THIST TIME
--- NOTE | 2018-11-28 07:28 | NUR ---
I have reviewed this patient and I concur with the Shift Assessment completed by the Licensed Practical Nurse today this shift.
[2018-11-28 09:30] VITALS: BP 112/72
--- NOTE | 2018-11-28 12:40 | MORECARE ---
CASE MANAGEMENT DISCHARGE SUMMARY PATIENT: SHOLA VALENTINE UNIT: [id number] ADM DATE: 11/25/18 AGE: 58 : 64 SEX: F ROOM/BED: D.2235 AUTHOR: NAYELI,DOC PHYSICIAN: REFERRING PHYSICIAN: KATIE MEJIA MD DATE OF SERVICE: 11/28/18 Discharge Plan Patient Name: SHOLA VALENTINE Facility: [facility]:[place] : 1960 Planned Disposition: Home with Home Health Anticipated Discharge Date: Discharge Date: Expected LOS: Initial Reviewer: [email or web address] Initial Review Date: 11/28/2018 Generated: 11/28/18 1:39 pm Comments DCP- Discharge Planning Updated by [email or web address]: Sara Jimenez on 11/28/18 11:[address] Patient Name: SHOLA VALENTINE Admission Status: ER Accout number: [id number] Admission Date: 11-25-2018 : 1960 Admission Diagnosis:SEBACEOUS CYST Attending: KATIE MEJIA Current LOS: 3 Anticipated DC Date: Planned Disposition: Home with Home Health Primary Insurance: [employer] MANAGED MEDICAID Discharge Planning Comments: CM met with patient to complete initial dc planning assessment. CM educated patient on the CM role and verbal consent given by patient to complete assessment. Patient lives at home with her 25 year old son. At discharge patient plans to return and feels this is a safe discharge. CM discussed availability of home health, rehab services, and medical equipment. Patient states she feels like she needs home health for wound packing. I informed her that she would need a teachable caregiver because home health does not come out daily. She states her DIL is a KNOCKOUT MACHINE OPERATOR that they could teach. She states her daughter or son will drive her home on discharge. DARRYN for [facility] signed. I called Nicol at [place] and clinical faxed. CM will continue to follow and will assist as needed with dc plans/needs. Senior Care Specialist: Sara Jimenez DCPIA - Discharge Planning Initial Assessment Updated by [email or web address]: Sara Jimenez on 11/28/18 12:34 pm * Is the patient Alert and Oriented? Yes * How many steps to enter\exit or inside your home? 0/2 flight * PCP Dr. Syed * Pharmacy [facility] on [address] [facility] * Preadmission Environment Home with Family * ADLs Independent * Equipment None * List name and contact numbers for known caregivers / representatives who currently or will assist patient after discharge: Marciano Valentine - son - [phone] * Verbal permission to speak to the caregivers and representatives has been obtained from the patient. Yes * Community resources currently utilized None * Additional services required to return to the preadmission environment? No * Can the patient safely return to the preadmission environment? Yes * Has this patient been hospitalized within the prior 30 days at any hospital? No External Providers External Provider: [facility] Next Contact Date: Service Request Date: Service Type: Resolution: Reviewer: Comments: Coverage Notice Reviewer: [email or web address] Saul Jimenez Notice Issued Date-Time: 11/28/2018 12:36 Notice Type: Patient Choice Letter Notice Delivered To: Patient Relationship to Patient: Local Area Network Administrator Name: Delivery Method: HAND - Hand Delivered Kimmy Days: Prior Verbal Notification: Recipient Understood Notice: Yes Recipient Signature: Yes Med Rec Note Co-signed by Attending: Coverage Notice Comment: DARRYN for [facility] Patient Name: SHOLA VALENTINE Page [phone] at 1240 All edits/amendments must be made on the electronic document DICTATION DATE: 11/28/18 123 RACING MANAGER: JOSÉ MIGUEL 11/28/18 1239 RPT#: [id number] DC DATE: STATUS: ADM IN [facility] [address] [place] [address] END OF REPORT
[2018-11-28 12:45] VITALS: BP 109/70
--- NOTE | 2018-11-28 16:09 | OP ---
PATIENT NAME: SHOLA VALENTINE MEDICAL RECORD: [id number] :64 LOCATION:D.MS [id number] ADMISSION DATE:11/25/18 SURGEON: HARRIS ESPARZA MD DATE OF OPERATION: 11/26/2018 PREOPERATIVE DIAGNOSIS: Infected back sebaceous cyst. POSTOPERATIVE DIAGNOSIS: Infected back sebaceous cyst. PROCEDURE: Incision and debridement of back sebaceous cyst. SURGEON: Harris Esparza MD REPORT OF PROCEDURE: The patient was placed on her left side, and the back was prepped and draped in sterile fashion. The opening was already made from the infection. Cultures were taken x3. We then opened up this area and were able to feel into a very large cystic cavity. We irrigated out the wound with peroxide and saline solution. The patient had a large cystic cavity present. We excised the cystic cavity using sharp dissection until it was completely removed. At this point, there was normal appearing fatty tissue and the cyst went down all the way to the muscle. We irrigated out the wound one last time with peroxide and saline solution. The wound was then packed with peroxide soaked 4 x 4 and covered with dry 4 x 4s. COMPLICATIONS: None. CONDITION: Stable. ANESTHESIA: General endotracheal. BLOOD LOSS: Minimal. TRANSINT:[id number] Voice Confirmation ID: [id number] DOCUMENT ID: [id number] HARRIS ESPARZA MD at 1609 CC: LAKEISHA VAUGHN [id number] DICTATION DATE: 11/26/18 1435 CYBERATHLETE: 11/26/18 1451 ADM IN [facility] [id number] [place] [address]
[2018-11-28 17:11] VITALS: BP 110/75
--- NOTE | 2018-11-28 19:00 | NUR ---
REPORT RECEIVED AND CARE OF PT ASSUMED. PT LYING ON LEFT SIDE WITH EYES CLOSED. IV IN RIGHT WRIST SALINE LOCKED. DRESSING ON RIGHT UPPER BACK CLEAN AND DRY. WILL MONITOR FOR NEEDS.
--- NOTE | 2018-11-28 19:34 | NUR ---
GAVE MORPHINE 4 MG IVP PER PT REQUEST FOR SEVERE PAIN. WILL MONITOR FOR EFFECTIVENESS.
[2018-11-28 20:02] VITALS: BP 99/57
--- NOTE | 2018-11-28 20:47 | NUR ---
HS MEDICATIONS GIVEN TO INCLUDE NORCO PER REQUEST FOR PAIN. WILL CONTINUE TO MONITOR FOR NEEDS.
--- NOTE | 2018-11-28 23:31 | NUR ---
PT REQUESTING PAIN MEDICATION FOR INCREASING PAIN AND NOT ABLE TO SLEEP. GAVE MORPHINE 4 MG IVP PER PRN ORDER. WILL MONITOR FOR EFFECTIVENESS.
[2018-11-29] VITALS: BP 106/62
[2018-11-29 04:00] VITALS: BP 105/62
[2018-11-29 06:20] LABS: BASOPHILS 0.2 % (0-2); EOSINOPHILS 5.6 % (0-7); HEMATOCRIT 33.6 % (36.0-48.0); HEMOGLOBIN 11.2 g/dL (12-16); IMMATURE GRANULOCYTES 1.2 % (0-5); LYMPHOCYTES 41.6 % (15-50); MCH 30.2 pg (26.0-34.0); MCHC 33.3 g/dL (31.0-37.0); MCV 90.6 fL (80.0-100.0); MEAN PLATELET VOLUME 10.3 fL (7.4-10.4); NEUTROPHILS 45.4 % (40-80); PLATELET COUNT 166 10x3/uL (130-400); RBC 3.71 10x6/uL (4.00-5.40); RDW 11.8 % (11.5-14.5); WBC 4.8 10x3/uL (4.8-10.8)
[2018-11-29 06:26] LABS: CALC OSMOLALITY 280 mosm/kg (275-300); CALCIUM 8.4 mg/dL (8.5-10.1); CARBON DIOXIDE 30.2 mmol/L (21.0-32.0); CHLORIDE - SERUM 108 mmol/L (98-107); CREATININE - SERUM 0.8 mg/dL (0.6-1.3); GLUCOSE 101 mg/dL (74-106); POTASSIUM - SERUM 3.7 mmol/L (3.5-5.1); SODIUM 142 mmol/L (136-145); UREA NITROGEN 6 mg/dL (7-18); eGFR NON AFRICAN AMERICAN 78 mL/min (90-120)
[2018-11-29 08:40] VITALS: BP 109/64
--- NOTE | 2018-11-29 11:16 | NUR ---
PT RESTING IN BED. NO SIGNS OF DISTRESS. IV TO RIGHT WRIST PATENT NO REDNESS OR TENDERNESS. HAS DRESSING TO BACK. DENIES ANY FUTHER NEED AT THIS TIME. CALL LIGHT IN REACH. BED LOW POSITION. NO FAMILY AT BESIDE AT THIS TIME.
[2018-11-29] MEDS ORDERED: HYDROCODON-ACE1 EA10 PO (12:28)
[2018-11-29] MEDS ORDERED: LEVAQUIN750 MG PO (12:29)
[2018-11-29 13:16] VITALS: BP 96/57
--- NOTE | 2018-11-29 15:27 | MORECARE ---
CASE MANAGEMENT DISCHARGE SUMMARY PATIENT: SHOLA VALENTINE UNIT: [id number] ADM DATE: 11/25/18 AGE: 58 : 64 SEX: F ROOM/BED: D.2235 AUTHOR: NAYELI,DOC PHYSICIAN: REFERRING PHYSICIAN: KATIE MEJIA MD DATE OF SERVICE: 11/29/18 Discharge Plan Patient Name: SHOLA VALENTINE Facility: [facility]:[place] : 1960 Planned Disposition: Home with Home Health Anticipated Discharge Date: Discharge Date: Expected LOS: Initial Reviewer: [email or web address] Initial Review Date: 11/28/2018 Generated: 11/29/18 4:27 pm Comments DCP- Discharge Planning Updated by [email or web address]: Sara Jimenez on 11/29/18 2:[address] Received order for discharge. I called [facility] and spoke to [place] and clinical faxed. Nicol states they will see the patient tomorrow. CM will continue to follow and assist with discharge planning/needs. DCP- Discharge Planning Updated by [email or web address]: Sara Jimenez on 11/28/18 11:[address] Patient Name: SHOLA VALENTINE Admission Status: ER Accout number: [id number] Admission Date: 11-25-2018 : 1960 Admission Diagnosis:SEBACEOUS CYST Attending: KATIE MEJIA Current LOS: 3 Anticipated DC Date: Planned Disposition: Home with Home Health Primary Insurance: [facility] MA[facility]ED MEDICAID Discharge Planning Comments: CM met with patient to complete initial dc planning assessment. CM educated patient on the CM role and verbal consent given by patient to complete assessment. Patient lives at home with her 25 year old son. At discharge patient plans to return and feels this is a safe discharge. CM discussed availability of home health, rehab services, and medical equipment. Patient states she feels like she needs home health for wound packing. I informed her that she would need a teachable caregiver because home health does not come out daily. She states her DIL is a TRIMMING CASER that they could teach. She states her daughter or son will drive her home on discharge. DARRYN for [facility] signed. I called Nicol at [place] and clinical faxed. CM will continue to follow and will assist as needed with dc plans/needs. Manager Of Learning: Sara Jimenez DCPIA - Discharge Planning Initial Assessment Updated by [email or web address]: Sara Jimenez on 11/28/18 12:34 pm * Is the patient Alert and Oriented? Yes * How many steps to enter\exit or inside your home? 0/2 flight * PCP Dr. Syed * Pharmacy [facility] on [address] * Preadmission Environment Home with Family * ADLs Independent * Equipment None * List name and contact numbers for known caregivers / representatives who currently or will assist patient after discharge: Marciano Valentine - son - [phone] * Verbal permission to speak to the caregivers and representatives has been obtained from the patient. Yes * Community resources currently utilized None * Additional services required to return to the preadmission environment? No * Can the patient safely return to the preadmission environment? Yes * Has this patient been hospitalized within the prior 30 days at any hospital? No Coverage Notice Reviewer: [email or web address] - Sara Jimenez Notice Issued Date-Time: 11/28/2018 12:36 Notice Type: Patient Choice Letter Notice Delivered To: Patient Relationship to Patient: Voting Machine Repairer Name: Delivery Method: HAND - Hand Delivered Kimmy Days: Prior Verbal Notification: Recipient Understood Notice: Yes Recipient Signature: Yes Med Rec Note Co-signed by Attending: Coverage Notice Comment: DARRYN for [facility] Last DP export: 11/28/18 11:39 am Patient Name: SHOLA VALENTINE Page [phone] at 1527 All edits/amendments must be made on the electronic document DICTATION DATE: 11/29/181526 MAKING MACHINE OPERATOR: JOSÉ MIGUEL 11/29/181526 RPT#: [id number] DC DATE: STATUS: ADM IN [facility] [address] [place] [address] END OF REPORT
[2018-11-29 16:53] VITALS: BP 124/72
--- NOTE | 2018-11-29 17:23 | NUR ---
DISCHARGE INSTRUCTIONS GIVEN. SEEMS TO UNDERSTAND INSTRUCTIONS. IV OTU TIP INTACT. DENIES ANY FUTHER NEED AT THIS TIME. LEFT WITH HOSPITIAL STAFF TO PERSONAL RIDE TO GO HOME.
== END 2018-11-29 17:24 | disposition home health service (06) | DRG 571 ==
LOC: D.ER 17:11 → D.MS 20:39
PROVIDERS: Emergency Medicine; Family Medicine; Surgery; ADMIT Internal Medicine Nephrology; ATTEND Internal Medicine Nephrology
PROC: 0JB70ZZ Excision of Back Subcutaneous Tissue and Fascia, Open Approach (ICD-10-PCS; principal; 2018-11-26 14:00)
DX: L72.3 Sebaceous cyst (principal); D69.3 Immune thrombocytopenic purpura; F43.10 Post-traumatic stress disorder, unspecified; F41.9 Anxiety disorder, unspecified

== ENCOUNTER 2019-05-03 17:39 | Observation (INO) | payer OTHER ==
[~2019-05-03] VITALS: Ht 157.5 cm; Wt 77.3 kg
[~2019-05-03 17:39] MED LIST changes: +AMOXICILLIN875 MG PO; +HYDROCODON-ACE1 EA10 PO; +XANAX2 MG PO
--- NOTE | 2019-05-03 17:53 | NUR ---
CP 12/30
[2019-05-03 18:05] VITALS: BP 137/86
--- NOTE | 2019-05-03 18:05 | NUR ---
CP AT 10/10
[2019-05-03 18:45] LABS: BASOPHILS 0.3 % (0-2); EOSINOPHILS 4.4 % (0-7); HEMATOCRIT 41.2 % (36.0-48.0); HEMOGLOBIN 14.1 g/dL (12-16); IMMATURE GRANULOCYTES 0.2 % (0-5); MCH 31.3 pg (26.0-34.0); MCHC 34.2 g/dL (31.0-37.0); MCV 91.4 fL (80.0-100.0); MEAN PLATELET VOLUME 10.7 fL (7.4-10.4); MONOCYTES 6.1 % (2-11); PLATELET COUNT 170 10x3/uL (130-400); RBC 4.51 10x6/uL (4.00-5.40); RDW 12.2 % (11.5-14.5); WBC 6.4 10x3/uL (4.8-10.8)
[2019-05-03 19:00] LABS: ALBUMIN 4.1 g/dL (3.4-5.0); ALKALINE PHOSPHATASE 51 U/L (46-116); ALT (SGPT) 17 U/L (10-68); BILIRUBIN - TOTAL 0.53 mg/dL (0.2-1.3); CALC OSMOLALITY 283 mosm/kg (275-300); CALCIUM 8.9 mg/dL (8.5-10.1); CARBON DIOXIDE 30.5 mmol/L (21.0-32.0); CHLORIDE - SERUM 106 mmol/L (98-107); CREATININE - SERUM 0.9 mg/dL (0.6-1.3); GLUCOSE 95 mg/dL (74-106); POTASSIUM - SERUM 4.2 mmol/L (3.5-5.1); PROTEIN - SERUM 6.7 g/dL (6.4-8.2); SODIUM 143 mmol/L (136-145); UREA NITROGEN 10 mg/dL (7-18); eGFR NON AFRICAN AMERICAN 69 mL/min (90-120)
[2019-05-03 19:10] LABS: CKMB 0.7 U/L (0.0-3.6); CREATINE KINASE 79 UL (21-215); PRO BNP 16 pg/mL (0-125); TROPONIN-I < 0.017 ng/mL (0.000-0.060)
[2019-05-03 19:27] LABS: AMYLASE - SERUM 21 U/L (25-115); LIPASE 133 U/L (73-393)
[2019-05-03] MEDS ORDERED: CLONAZEPAM TAB 2MG (21:09)
[2019-05-03] MEDS ORDERED: WELLBUTRIN SR150 MG PO (21:10)
--- NOTE | 2019-05-03 21:10 | NUR ---
RECEIVED FROM ER VIA WHEELCHAIR,PLACED ON TELEMTRY, IV-LFA-SL, HISTORY AND MEDS COMPLETE, BED IS LOW, SRX2, CALL LIGHT IN REACH, WILL CONTINUE PLAN OF CARE
[2019-05-03 23:52] VITALS: BP 101/52
[2019-05-04 01:58] LABS: CKMB 0.5 U/L (0.0-3.6); CREATINE KINASE 71 UL (21-215)
[2019-05-04 01:59] LABS: TROPONIN-I < 0.017 ng/mL (0.000-0.060)
[2019-05-04 04:02] VITALS: BP 104/62
--- NOTE | 2019-05-04 04:16 | NUR ---
I have reviewed this patient and I concur with the Shift Assessment completed by the Licensed Practical Nurse today this shift.
[2019-05-04] MEDS ORDERED: KLONOPIN1 MG PO (04:28)
[2019-05-04 04:30] VITALS: BP 135/85; BMI 31.1
--- NOTE | 2019-05-04 07:30 | NUR ---
RECIEVE REPORT. RESTING IN BED WITH EYES CLOSED. RESPIRATIONS EVEN AND REGULAR. SINUS RYTHM 67 ON TELEMETRY. NO SIGNS OF DISTRESS. CONTINUE PLAN OF CARE AND SAFETY PRECAUTIONS.
[2019-05-04 08:13] VITALS: BP 122/68
[2019-05-04 08:19] LABS: CKMB 0.7 U/L (0.0-3.6); CREATINE KINASE 66 UL (21-215)
[2019-05-04 08:22] LABS: TROPONIN-I < 0.017 ng/mL (0.000-0.060)
[2019-05-04 12:35] VITALS: Ht 157.5 cm; Wt 77.3 kg
[2019-05-04 14:27] LABS: CKMB 0.6 U/L (0.0-3.6); CREATINE KINASE 66 UL (21-215)
[2019-05-04 14:33] LABS: TROPONIN-I < 0.017 ng/mL (0.000-0.060)
[2019-05-04 17:10] VITALS: BP 96/59
--- NOTE | 2019-05-04 18:04 | NUR ---
ALERT AND ORIENTED X4. LAYING IN BED WATCHING TV. NO CHANGE. DENIES ANY NEEDS AT THIS TIME. CONTINUE PLAN OF CARE AND SAFETY PRECAUTIONS.
--- NOTE | 2019-05-04 19:10 | NUR ---
RECEIVED REPORT, WILL ASSUME CARE OF PT, DENIES ANY NEEDS AT THIS TIME, BED IS LOW, SRX2, CALL LIGHT IN REACH, WILL CONTINUE PLAN OF CARE
[2019-05-04 20:32] VITALS: BP 100/57
[2019-05-05 00:10] VITALS: BP 98/59
--- NOTE | 2019-05-05 01:15 | NUR ---
I have reviewed this patient and I concur with the Shift Assessment completed by the Licensed Practical Nurse today this shift.
[2019-05-05 04:30] VITALS: BP 106/63
[2019-05-05 05:40] LABS: BASOPHILS 0.2 % (0-2); HEMATOCRIT 39.3 % (36.0-48.0); HEMOGLOBIN 13.4 g/dL (12-16); IMMATURE GRANULOCYTES 0.2 % (0-5); LYMPHOCYTES 41.5 % (15-50); MCH 31.2 pg (26.0-34.0); MCHC 34.1 g/dL (31.0-37.0); MCV 91.6 fL (80.0-100.0); MEAN PLATELET VOLUME 10.5 fL (7.4-10.4); MONOCYTES 7.4 % (2-11); NEUTROPHILS 44.7 % (40-80); PLATELET COUNT 160 10x3/uL (130-400); RBC 4.29 10x6/uL (4.00-5.40); WBC 5.4 10x3/uL (4.8-10.8)
[2019-05-05 05:52] LABS: ANION GAP 10.1 mmol/L (8-16); CALCIUM 8.5 mg/dL (8.5-10.1); CREATININE - SERUM 0.9 mg/dL (0.6-1.3); POTASSIUM - SERUM 4.1 mmol/L (3.5-5.1)
--- NOTE | 2019-05-05 07:30 | NUR ---
RECIEVE REPORT. ALERT AND ORIENTED X4. RESTING IN BED. DENIES SOB. DENIES ANY NEEDS AT THIS TIME. CONTINUE PLAN OF CARE AND SAFETY PRECAUTIONS.
[2019-05-05 09:13] VITALS: BP 164/65
[2019-05-05] MEDS ORDERED: PROTONIX40 MG PO (12:30)
[2019-05-05] MEDS ORDERED: CARAFATE1 G PO (12:30)
--- NOTE | 2019-05-05 12:57 | NUR ---
UPON ADMIT, PATIENT HAS NOT HAD A FLU SHOT THIS YEAR. WHEN ASKED, SHE STATES, "I DON'T TAKE THEM ANYMORE AND I ALSO HAVE ITP".
--- NOTE | 2019-05-05 15:30 | NUR ---
ALERT AND ORIENTED X4. SITTING UP IN BED. DC LT FA IV TIP INTACT. DISCHARGE INSTRUCTIONS GIVEN VERBALLY AND WRITTEN. DISCHARGE PAPERS SIGNED ON CHART. ESCORT TO RIDE VIA WHEELCHAIR. REMAINS FREE FROM INJURY.
--- NOTE | 2019-05-06 08:26 | MORECARE ---
CASE MANAGEMENT DISCHARGE SUMMARY PATIENT: SHOLA VALENTINE UNIT: [id number] ADM DATE: 05/03/19 AGE: 58 : 64 SEX: F ROOM/BED: D.1753 AUTHOR: FARIBA TYLER PHYSICIAN: REFERRING PHYSICIAN: KATIE MEJIA MD DATE OF SERVICE: 05/06/19 Discharge Plan Patient Name: SHOLA VALENTINE [facility] : 1960 Planned Disposition: Home Anticipated Discharge Date: 05/05/19 Discharge Date: 05/05/2019 Expected LOS: 2 Initial Reviewer: [email or web address] Initial Review Date: 05/06/2019 Generated: 05/06/19 9:26 am Coverage Notice Reviewer: [email or web address] Saul Schumacher Notice Issued Date-Time: 05/04/2019 17:17 Notice Type: Medicare Outpatient Observation Notice Notice Delivered To: Patient Relationship to Patient: [employer] Administrator Name: Delivery Method: HAND - Hand Delivered Kimmy Days: Prior Verbal Notification: Recipient Understood Notice: Recipient Signature: Med Rec Note Co-signed by Attending: Coverage Notice Comment: ALICIA delivered, explained, signed by the patient, and placed in his chart. Signed form also left with patient. Tamanna Schumacher RN , [facility] Patient Name: SHOLA VALENTINE Page [phone] at 0826 All edits/amendments must be made on the electronic document DICTATION DATE: 05/06/19825 ELECTRICAL EQUIPMENT TECHNICIAN: JOSÉ MIGUEL 05/06/19825 RPT#: [id number] DC DATE:05/05/19 STATUS: DIS IN [facility] [address] [place] [address] END OF REPORT
== END 2019-05-05 15:32 | disposition home or self-care (01) ==
LOC: D.ER 17:39 → D.M2 20:05 → OBSVTIME 20:05 → D.M2 20:05 → D.SDCHOLD 05-05 14:01 → D.M2 05-05 14:01
PROVIDERS: Family Medicine; ADMIT Internal Medicine Nephrology; ATTEND Internal Medicine Nephrology
DX: I20.9 Angina pectoris, unspecified (principal); E78.5 Hyperlipidemia, unspecified; K58.9 Irritable bowel syndrome, unspecified; D69.3 Immune thrombocytopenic purpura; F41.9 Anxiety disorder, unspecified

== ENCOUNTER → 2019-05-23 12:34 | Outpatient (CLI) | payer OTHER ==
[2019-05-04 12:35] VITALS: BMI 31.1
[~2019-05-23 12:34] MED LIST changes: +CARAFATE1 G PO; +CLONAZEPAM TAB 2MG; +PROTONIX40 MG PO; +WELLBUTRIN SR150 MG PO
== END ==
LOC: D.MRI 05-13 11:00
PROVIDERS: ATTEND Family Medicine
DX: M25.511 Pain in right shoulder (principal)

== ENCOUNTER 2019-10-31 21:43 | Emergency (ER) | payer OTHER ==
[~2019-10-31] VITALS: Ht 157.5 cm; Wt 81.4 kg
[2019-10-31 21:47] VITALS: Ht 157.5 cm; Wt 81.4 kg
[2019-10-31] MEDS ORDERED: PROZAC20 MG PO (22:00)
[2019-10-31] MEDS ORDERED: PERCOCET 10-321 EAC1 PO (22:00)
[2019-10-31] MEDS ORDERED: PHENERGAN25 M1 PO (22:01)
[2019-10-31] MEDS ORDERED: OMNICEF300 MG PO (22:01)
[2019-10-31 22:10] LABS: BASOPHILS 0.3 % (0-2); EOSINOPHILS 5.2 % (0-7); HEMATOCRIT 35.8 % (36.0-48.0); HEMOGLOBIN 11.8 g/dL (12-16); IMMATURE GRANULOCYTES 0.3 % (0-5); LYMPHOCYTES 38.6 % (15-50); MCH 30.7 pg (26.0-34.0); MCV 93.2 fL (80.0-100.0); MEAN PLATELET VOLUME 10.4 fL (7.4-10.4); MONOCYTES 6.8 % (2-11); NEUTROPHILS 48.8 % (40-80); RBC 3.84 10x6/uL (4.00-5.40); RDW 12.3 % (11.5-14.5); WBC 6.5 10x3/uL (4.8-10.8)
[2019-10-31 22:18] LABS: PLATELET COUNT 122 10x3/uL (130-400)
[2019-10-31 22:29] LABS: BILIRUBIN NEGATIVE (NEGATIVE); GLUCOSE NEGATIVE (NEGATIVE); KETONE NEGATIVE (NEGATIVE); NITRITE NEGATIVE (NEGATIVE); UROBILINOGEN NORMAL (NORMAL)
[2019-10-31 22:34] LABS: ALBUMIN 3.1 g/dL (3.4-5.0); ANION GAP 10.8 mmol/L (8-16); BILIRUBIN - TOTAL 0.32 mg/dL (0.2-1.3); CALCIUM 7.7 mg/dL (8.5-10.1); CARBON DIOXIDE 26.2 mmol/L (21.0-32.0); CREATININE - SERUM 0.9 mg/dL (0.6-1.3); PROTEIN - SERUM 5.7 g/dL (6.4-8.2)
[2019-10-31] MEDS ORDERED: TESSALON PERLE100 MG PO (23:07)
[2019-10-31 23:21] VITALS: BP 110/68
== END 2019-10-31 23:21 | disposition home or self-care (01) ==
LOC: D.ER 21:43
PROVIDERS: Family Medicine
DX: R05 Cough (principal); R53.1 Weakness; R68.89 Other general symptoms and signs

== ENCOUNTER → 2020-01-06 13:58 | Outpatient (CLI) | payer OTHER ==
[2019-10-31 21:47] VITALS: BMI 32.8
[~2020-01-06 13:58] MED LIST changes: +OMNICEF300 MG PO; +PERCOCET 10-321 EAC1 PO; +PROZAC20 MG PO; +TESSALON PERLE100 MG PO
== END | disposition home or self-care (01) ==
LOC: D.US 01-05 14:00
PROVIDERS: ATTEND Family Medicine
DX: E04.1 Nontoxic single thyroid nodule (principal)

== ENCOUNTER → 2020-01-29 11:12 | Outpatient (CLI) | payer OTHER ==
[2019-10-31 21:47] VITALS: BMI 32.8
== END | disposition home or self-care (01) ==
LOC: D.US 11:00
PROVIDERS: ATTEND Family Medicine
DX: E04.1 Nontoxic single thyroid nodule (principal)

== ENCOUNTER 2020-02-15 03:39 | Emergency (ER) | payer OTHER ==
[~2020-02-15] VITALS: Ht 157.5 cm; Wt 81.6 kg
[2020-02-15 03:42] VITALS: Ht 157.5 cm; Wt 81.6 kg
[2020-02-15 03:59] LABS: BASOPHILS 0.1 % (0-2); EOSINOPHILS 4.6 % (0-7); HEMATOCRIT 38.8 % (36.0-48.0); HEMOGLOBIN 13.3 g/dL (12-16); IMMATURE GRANULOCYTES 0.4 % (0-5); LYMPHOCYTES 44.1 % (15-50); MCH 30.6 pg (26.0-34.0); MCHC 34.3 g/dL (31.0-37.0); MCV 89.4 fL (80.0-100.0); MEAN PLATELET VOLUME 10.3 fL (7.4-10.4); MONOCYTES 6.8 % (2-11); RBC 4.34 10x6/uL (4.00-5.40); WBC 7.2 10x3/uL (4.8-10.8)
[2020-02-15 04:00] LABS: PLATELET COUNT 178 10x3/uL (130-400)
[2020-02-15 04:08] LABS: ANION GAP 10.2 mmol/L (8-16); CALCIUM 8.5 mg/dL (8.5-10.1); CARBON DIOXIDE 27.2 mmol/L (21.0-32.0); CREATININE - SERUM 1.1 mg/dL (0.6-1.3); POTASSIUM - SERUM 3.4 mmol/L (3.5-5.1)
[2020-02-15 04:14] LABS: ALBUMIN 3.7 g/dL (3.4-5.0); BILIRUBIN - TOTAL 0.3 mg/dL (0.2-1.3); PROTEIN - SERUM 6.5 g/dL (6.4-8.2)
[2020-02-15 07:16] VITALS: BP 132/77
== END 2020-02-15 07:20 | disposition home or self-care (01) ==
LOC: D.ER 03:39
PROVIDERS: Family Medicine
DX: R07.0 Pain in throat (principal); M54.2 Cervicalgia; H92.02 Otalgia, left ear

== ENCOUNTER 2020-04-16 09:10 | Inpatient (IN) | payer OTHER ==
[~2020-04-16] VITALS: Ht 157.5 cm; Wt 85.3 kg
[2020-04-16 08:03] LABS: BASOPHILS 0.2 % (0-2); EOSINOPHILS 3.5 % (0-7); HEMATOCRIT 41.4 % (36.0-48.0); HEMOGLOBIN 14.2 g/dL (12-16); LYMPHOCYTES 39.8 % (15-50); MCHC 34.3 g/dL (31.0-37.0); MCV 90.4 fL (80.0-100.0); MEAN PLATELET VOLUME 10.5 fL (7.4-10.4); MONOCYTES 7.3 % (2-11); NEUTROPHILS 49.2 % (40-80); PLATELET COUNT 177 10x3/uL (130-400); RBC 4.58 10x6/uL (4.00-5.40); RDW 12.4 % (11.5-14.5); WBC 5.5 10x3/uL (4.8-10.8)
[2020-04-16 08:17] LABS: ANION GAP 8.9 mmol/L (8-16); CALCIUM 8.7 mg/dL (8.5-10.1); CARBON DIOXIDE 27.1 mmol/L (21.0-32.0); CREATININE - SERUM 0.9 mg/dL (0.6-1.3)
[2020-04-16 08:21] LABS: APTT 29.6 SECONDS (22.8-39.4); INR 1.03 (0.85-1.17); PROTIME 13.4 SECONDS (11.6-15.0)
[2020-04-16 09:10] VITALS: BP 116/83; Ht 157.5 cm; Wt 85.3 kg
--- NOTE | 2020-04-16 13:35 | NUR ---
UPDATED PTS KENDALL RECORD SHE SWEARS SHE IS NOT ALLERGIC TO DILAUDID AND STATES "THATS THE ONLY ONE THAT ACTUALLY WORKS FOR ME" PT STATES SHE WAS OR HAS BEEN ALLERGIC TO MORPHINE BUT NOT A TRUE ALLERGY SHE STATES IT MAKES HER "SUPER NASEATED AND GIVES HER MIGRAINES" DISCUSSED WITH PRIMARY NURSE.
[2020-04-16 13:42] VITALS: BP 122/83
--- NOTE | 2020-04-16 14:00 | NUR ---
ARRIVED TO ROOM 2238 VIA STRETCHER AWAKE AND ALERT. RESP EVEN AND UNLABORED WITH NO DISTRESS NOTED. DRESSING CLEAN DRY AND INTACT TO NECK. C/O PAIN RATING 5/10 ON PAIN SCALE. VITAL SIGN PER PROTOCOL. SON AT BEDSIDE. C/L IN REACH AT BEDSIDE.
[2020-04-16 17:22] VITALS: BP 122/72
--- NOTE | 2020-04-16 18:05 | NUR ---
MEDICATED WITH DILADID FOR C/O NECK PAIN. C/L IN REACH IN REACH AT BEDSIDE.
--- NOTE | 2020-04-16 21:00 | NUR ---
CALLED [employer]LL BENEFITS ADMINISTRATOR AND ASKED FOR A TRACH TRAY AT BEDSIDE PER REQUEST OF DR. CORNEJO. PAYROLL BENEFITS ADMINISTRATOR, BURT SAID SHE WOULD BRING ONE.
--- NOTE | 2020-04-16 21:00 | NUR ---
PATIENT PACING IN ROOM AND SON AT BEDSIDE. NO S/S OF ACUTE DISTRESS. PATIENT C/O HER DRESSING ON HER NECK GETTING BLOODIER WIHTIN THE HOUR. I MARKED ON THE BANAGE WHERE IT HAD BLEED TO. IMEDIATELY I CALLED [facility], FOR THE ON-CALL TO BE PAGED. [facility] CALLED BACK. I TOLD HER THAT I WAS CONCERNED BECAUSE I DIDN'T KNOW WHAT THE BANADAGE LOOKED LIKE AFTER SURGERY AND IT DID APPEAR THOUGH IT WAS SOAKING THE BANAGE. I EXPALINED THAT I KNEW IT WAS A NECK WOUND AND IT WILL BLEED, BUT I WAS CONCERNED BECAUSE IT WAS IN THE NECK AREA. SHE SAID SHE WOULD TEXT DR. CORNEJO. CHANTAL CALLED AND ASKE ME HOW IT LOOKED. I DESCRIBED THAT THERE WAS A FAIR AMOUNT OF BLOOD ON THE BANDAGE, AND HOW I HAD NEVER TAKEN CARE OF A PATIENT THAT HAD A THYROID SURGERY BEFORE AND I DIDN'T KNOW HOW MUCH BLOOD TO EXPECT. I WAS CONCERNED BECAUSE IT DID APPEAR TO BE WORSENING. CHANTAL TALKED TO THE PATIENT AND PATIENT AGREED TO ME TAKING PICTURES (LEAVING EVERYTHING OUT BUT THE INCISION) AND SENDING THEM TO HIM. I DID SO. CHANTAL TOLD ME TO HAVE A TRACHE KIT AT BEDSIDE, RAISE BED TO SITTING POSITION, STOP ANTI-COAGULANTS/ANTIINFLAMMATORIES. ALL WAS DONE. CALL LIGHT CARLOS A REACH. WILL CONTINUE TO MONITOR.
[2020-04-16 21:08] VITALS: BP 112/67
[2020-04-17 05:57] VITALS: BP 92/59
--- NOTE | 2020-04-17 07:05 | NUR ---
A&O SITTING UP ON THE SIDE OF THE BED. C/O PAIN, JEN VANEGAS LPN GAVE DILAUDID FOR PAIN AND ZOFRAN FOR NAUSEA. NO S/S OF ACUTE DISTRESS NOTED. POD #1 LEFT THYROIDECTOMY, DRESSING C/D/I. REDNESS AROUND DRESSING. ALLERGY TO ADHESIVES. IV TO RIGHT FOREARM, SL. SITE PATENT WITHOUT REDNESS OR SWELLING. DENIES ANY NEEDS AT THIS TIME. CALL LIGHT IN REACH. SON AT BEDSIDE. WILL CONTINUE TO MONITOR.
[2020-04-17 09:27] VITALS: BP 90/51
[2020-04-17 12:00] VITALS: BP 93/62
--- NOTE | 2020-04-17 15:53 | NUR ---
I have reviewed this patient and I concur with the Shift Assessment completed by the Licensed Practical Nurse today this shift.
[2020-04-17 18:06] VITALS: BP 99/44
--- NOTE | 2020-04-17 20:00 | NUR ---
ALERT UP AMBULATING IN ROOM, DRESSING TO NECK RETAPED, INCISION INTACT WITH STERISTRIPS, SLIGHT REDNESS NOTED AROUND SITE STATES HAD REACTION TO TAPE, SEE SHIFT ASSESSMENT, CALL LIGHT IN REACH, STATES DR CORNEJO SAID WOULD ORDER HER SOME STEROIDS FOR HER NECK SWELLING, NONE ORDERED AT THIS TIME, WILL CHECK WITH DR CORNEJO
--- NOTE | 2020-04-17 20:30 | NUR ---
DR CORNEJO CALLED CONCERNING STEROIDS WILL ORDER
[2020-04-17 21:18] VITALS: BP 114/66
[2020-04-18 01:23] VITALS: BP 106/53
--- NOTE | 2020-04-18 07:45 | NUR ---
AWAKE AND ALERT. ORIENTED X3. C/O THROAT PAIN AT THIS TIME. WILL MONITOR. LUNGS ARE CLEAR BILATERALLY, NO COUGH NOTED. SKIN IS INTACT WITHOUT REDNESS EXCEPT INCISION TO FRONT OF NECK WHICH HAS A DRY INTACT DRESSING IN PLACE. PATIENT IS C/O UNABLE TO SWALLOW. WILL MONITOR. SL TO RIGHT FOREARM IS PATENT WITHOUT REDNESS AT INSERTION SITE. DENIES NEEDS. SON AT BEDSIDE.
[2020-04-18 08:22] VITALS: BP 129/65
--- NOTE | 2020-04-18 09:00 | NUR ---
ATE ALL OF BREAKFAST. TOOK AM MEDS WITHOUT DIFFICULTY. DENIES NEEDS.
--- NOTE | 2020-04-18 10:24 | NUR ---
REQUESTED AND GIVEN ONE MG DILAUDID FOR PAIN LEVEL 10 IN THROAT. WILL MONITOR.
[2020-04-18 12:07] VITALS: BP 123/67
--- NOTE | 2020-04-18 13:40 | NUR ---
C/O ITCHING TO NECK. REQUESTED AND GIVEN 50MG BENEDRYL PO FOR SAME. WILL MONITOR. ICE PLACED TO NECK. WILL MONITOR.
--- NOTE | 2020-04-18 13:47 | NUR ---
REQUESTED AND GIVEN 4MG ZOFRAN IVP FOR C/O NAUSEA. ALSO REQUESTED AND GIVEN ONE HYDROCODONE PO FOR C/O THROAT PAIN LEVEL 8. WILL MONITOR.
[2020-04-18 17:48] VITALS: BP 120/75
--- NOTE | 2020-04-18 18:07 | NUR ---
DR. CORNEJO HERE TO MAKE ROUNDS. PATIENT SAYS SHE CAN'T GO HOME TONIGHT BECAUSE HER PHARMACY IS CLOSED. SHE IS HAVEING PROBLEMS WITH SWALLOWING STILL. SHE ALSON WANTS HER PAIN MEDS ONLY IV WHILE SHE IS HERE. WILL SEE WHAT SAYS.
--- NOTE | 2020-04-18 19:45 | NUR ---
PATIENT RESTING IN BED WITH NO S/S OF DISTRESS AT THIS TIME. PATIENT DENIES NEEDS AT THIS TIME. BED IN LOWEST POSITION AND CALL LIGHT WITHIN REACH. ENCOURAGED THE PATIENT TO CALL IF SHE HAS NEEDS. WILL CONTINUE TO MONITOR.
--- NOTE | 2020-04-18 19:57 | NUR ---
PLACED DRESSING TO PATIENT'S INCISION USING NON-ADHERENT DRESSING AND PAPER TAPE.
--- NOTE | 2020-04-18 20:00 | NUR ---
PATIENT CAME OUT TO DESK TO NOTIFY ME THAT SHE HAD REMOVED THE DRESSING TO HER INCISION BECAUSE IT WAS ITCHING. REQUESTED TO KEEP DRESSING OFF. I TOLD THE PATIENT I WOULD SPEAK WITH DR. CORNEJO AND LET HER KNOW. PATIENT ALSO REQUESTED VISTARIL AND STATED THAT BENADRYL GIVES HER "HEART PALPITATIONS".
--- NOTE | 2020-04-18 20:09 | NUR ---
CALLED GIS CONSULTANT GENARO TO NOTIFY HER THAT I NEED 20-20-20 MED ORDERED.
--- NOTE | 2020-04-18 21:31 | NUR ---
ADMINISTERED MEDS PER ORDERS
[2020-04-18 21:48] VITALS: BP 110/70
--- NOTE | 2020-04-18 21:57 | NUR ---
PLACED DRESSING TO PATIENT'S INCISION USING NON-ADHERENT DRESSING AND PAPER TAPE.
--- NOTE | 2020-04-18 22:03 | NUR ---
SPOKE WITH DR. CORNEJO IN REGARDS TO PATIENT'S REQUESTS. DR. CORNEJO ORDERED VISTARIL PER PATIENT REQUEST AND STATED THE DRESSING MAY STAY OFF PER PATIENT REQUEST.
[2020-04-19 05:13] VITALS: BP 109/62
[2020-04-19 06:10] LABS: BASOPHILS 0 % (0-2); EOSINOPHILS 0 % (0-7); HEMATOCRIT 40.1 % (36.0-48.0); HEMOGLOBIN 13.5 g/dL (12-16); IMMATURE GRANULOCYTES 0.2 % (0-5); LYMPHOCYTES 15.3 % (15-50); MCH 30.4 pg (26.0-34.0); MCHC 33.7 g/dL (31.0-37.0); MCV 90.3 fL (80.0-100.0); MEAN PLATELET VOLUME 11.2 fL (7.4-10.4); MONOCYTES 1.3 % (2-11); NEUTROPHILS 83.2 % (40-80); RBC 4.44 10x6/uL (4.00-5.40); RDW 12.2 % (11.5-14.5); WBC 6.1 10x3/uL (4.8-10.8)
[2020-04-19 06:18] LABS: PLATELET COUNT 214 10x3/uL (130-400)
[2020-04-19 06:41] LABS: ALBUMIN 4.2 g/dL (3.4-5.0); ANION GAP 15.8 mmol/L (8-16); BILIRUBIN - TOTAL 0.59 mg/dL (0.2-1.3); CALCIUM 9.1 mg/dL (8.5-10.1); MAGNESIUM - SERUM 2.1 mg/dL (1.8-2.4); POTASSIUM - SERUM 3.8 mmol/L (3.5-5.1); PROTEIN - SERUM 7.5 g/dL (6.4-8.2)
[2020-04-19 07:59] VITALS: BP 105/69
[2020-04-19] MEDS ORDERED: HYDROCODON-ACE1 EAC7 PO (08:48)
[2020-04-19] MEDS ORDERED: ZOFRAN4 MG PO (09:16)
--- NOTE | 2020-04-19 09:58 | NUR ---
DISCUSSED DISCHARGE INFO AND EDUCATION WITH PATIENT. RECEIVED INFO WELL. REMOVED PIV FROM RIGHT FOREARM. CATH FULLY INTACT. TOLERATED WELL. NO ACUTE DISTRESS NOTED. PT CALLED HER SON TO PICK HER UP.
--- NOTE | 2020-04-20 09:49 | OP ---
PATIENT NAME: SHOLA VALENTINE MEDICAL RECORD: [id number] :64 LOCATION:[id number] ADMISSION DATE:04/18/20 SURGEON: HARRIS ESPARZA MD DATE OF OPERATION: 04/16/2020 PREOPERATIVE DIAGNOSES: 1. Left thyroid follicular lesion. 2. Hypercholesterolemia. 3. Anxiety disorder. 4. Idiopathic thrombocytopenic purpura. POSTOPERATIVE DIAGNOSES: 1. Left thyroid follicular lesion. 2. Hypercholesterolemia. 3. Anxiety disorder. 4. Idiopathic thrombocytopenic purpura. PROCEDURE: Left thyroid lobectomy. SURGEON: Harris Esparza MD REPORT OF PROCEDURE: The patient's neck was prepped and draped in sterile fashion. A transverse incision was made about 2 fingerbreadths above the sternal notch. Electrocautery was used to dissect through the subcutaneous tissues and we elevated flaps above the strap muscles superiorly and inferiorly. We then opened up the median rhaphe and entered the space where the thyroid was present. We dissected the filmy attachments off the thyroid using a peanut and eventually got to the superior pole vessels. These vessels were tied off with 3-0 silks and small clip. As we got all the superior attachments down, then we went laterally and took down the lateral vasculature using 3-0 silk ties, and inferiorly, we found the vasculature and took down all of these using 3-0 silk ties and small clips. At this point, we had the left lobe of the thyroid freed up from the surrounding tissues. We transected through the isthmus of the thyroid using electrocautery and then took the thyroid off of the trachea. 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 The wound was then irrigated out thoroughly with normal saline. Any bleeding that was found was treated with electrocautery or with silk ties. I could see the recurrent laryngeal nerve and this did not appear to be injured. The wound was then packed with Gelfoam soaked in thrombin. We reapproximated the strap muscles using interrupted 2-0 Vicryls. The platysma was reapproximated with interrupted 3-0 Vicryl and the skin was closed with running subcutaneous 5-0 Monocryl. A 10 mL of 0.25% Marcaine with epinephrine was infused into the surrounding tissues and the wound was dressed appropriately. COMPLICATIONS: None. CONDITION: Stable. ANESTHESIA: General endotracheal and local. BLOOD LOSS: 30 mL. TRANSINT:[id number] Voice Confirmation ID: [id number] DOCUMENT ID: [id number] OPERATIVE REPORT [id number] SHOLA VALENTINE CHRISTIAN MD at 0949 CC: LAKEISHA VAUGHN [id number] DICTATION DATE: 04/16/20 1246 BUSINESS TRANSFORMATION CONSULTANT: 04/17/20 0037 DIS IN 04/19/20 [id number] [place] [address]
== END 2020-04-19 10:21 | disposition home or self-care (01) | DRG 626 ==
LOC: OBSVTIME → D.OPS 09:10 → D.SDCHOLD 09:45 → OBSVTIME 12:43 → D.MS 12:43 → D.SDCHOLD 13:52 → D.MS 13:52 → OBSVTIME 13:52 → D.MS 04-18 17:41
PROVIDERS: Anesthesiology; ADMIT Surgery; ATTEND Surgery
PROC: 0GTG0ZZ Resection of Left Thyroid Gland Lobe, Open Approach (ICD-10-PCS; principal; 2020-04-16 09:45)
DX: E07.89 Other specified disorders of thyroid (principal); D69.3 Immune thrombocytopenic purpura; F41.9 Anxiety disorder, unspecified; E78.00 Pure hypercholesterolemia, unspecified

== ENCOUNTER 2020-12-18 22:19 | Emergency (ER) | payer MEDICARE, BC ==
[~2020-12-18] VITALS: Ht 157.5 cm; Wt 67.7 kg
[~2020-12-18 22:19] MED LIST changes: +ZOFRAN4 MG PO
[2020-12-18 22:23] VITALS: Ht 157.5 cm; Wt 67.7 kg
--- NOTE | 2020-12-18 23:28 | NUR ---
ATTEMPTED TO PERFORM SUICIDAL RISK ASSESSMENT. PT RELATED SHE IS NOT SUICIDAL AND THE LAST TIME SHE HAD SI WAS 2017 WHEN HER FATHER . UNCOOPERATIVE AND REFUSES TO ANSWER QUESTIONS RELATING "ARE WE TALKING ABOUT 40 YEARS AGO? CAN'T REMEMBER. IT'S BEEN TO LONG. I HAVE NOTHING ELSE TO SAY THANK YOU." SPOKE WITH JUJU MCCLOUD CHARGE NURSE AND EXPLAINED SITUATION. PATIENT'S NURSE CONFIRMED SHE WAS LIKE THAT TOWARD HER WELL. NO ADDITIONAL REQUEST FROM ED.
[2020-12-18] MEDS ORDERED: HYDROCODON-ACE1 EAC7 PO (23:29)
[2020-12-19 00:05] VITALS: BP 120/85
== END 2020-12-19 00:06 | disposition home or self-care (01) ==
LOC: D.ER 22:19
DX: S40.011A Contusion of right shoulder, initial encounter (principal); S50.01XA Contusion of right elbow, initial encounter; S90.31XA Contusion of right foot, initial encounter; M25.561 Pain in right knee; X58.XXXA Exposure to other specified factors, initial encounter